=== PATIENT | male | born 1990 | race Caucasian/White ===

== ENCOUNTER → 2019-02-20 | Outpatient (CLI) | payer MEDICAID ==
[2019-02-20 15:01] LABS: HEMATOCRIT 45.5 % (42.0-52.0); HEMOGLOBIN 15.8 g/dl (13.5-17.5); MEAN CORPUSCULAR HGB CONC 34.7 g/dl (32.0-36.5); MEAN CORPUSCULAR VOLUME 83.5 fl (80.0-96.0); PLATELET COUNT, AUTOMATED 260 10^3/uL (150-450); RED BLOOD COUNT 5.45 10^6/uL (4.30-6.10); WHITE BLOOD COUNT 10.7 10^3/uL (4.0-10.0)
[2019-02-20 15:31] LABS: ALBUMIN 4.3 GM/DL (3.2-5.2); ALT/SGPT 78 U/L (12-78); BILIRUBIN,TOTAL 0.4 MG/DL (0.2-1.0); BLOOD UREA NITROGEN 20 MG/DL (7-18); CALCIUM LEVEL 9.5 MG/DL (8.5-10.1); CARBON DIOXIDE LEVEL 29 MEQ/L (21-32); CHLORIDE LEVEL 108 MEQ/L (98-107); GLOMERULAR FILTRATION RATE > 60.0 (>60); GLUCOSE, FASTING 102 MG/DL (70-100); POTASSIUM SERUM 4.4 MEQ/L (3.5-5.1); SODIUM LEVEL 141 MEQ/L (136-145); TOTAL PROTEIN 8.5 GM/DL (6.4-8.2)
--- NOTE | 2019-02-20 15:51 | ECGEPIP ---
[facility] Test Date: 2019-02-20 Pat Name: SHERRY BECK Department: Room: - Gender: Male [employer]: RF : 1990 Requested By: Mj Macias Order Number: [id number] Reading MD: Rhianna Zapien Measurements Intervals [place] Rate: 74 P: 59 [place]: 164 QRS: 64 QRSD: 102 T: 48 QT: 371 QTc: 413 Interpretive Statements SINUS RHYTHM NORMAL Electronically Signed on 02-20-2019 15:51:25 EDT by Rhianna Zapien
[2019-02-20 16:18] LABS: HIV 1&2 SCREEN CENTAUR NEGATIVE (NEGATIVE)
[2019-02-20 16:50] LABS: CHLAMYDIA DNA AMPLIFICATION NEGATIVE (NEGATIVE); GC DNA AMPLIFICATION NEGATIVE (NEGATIVE)
[2019-02-22 11:30] LABS: HEPATITIS B SURFACE ANTIGEN NEGATIVE (NEGATIVE)
[2019-02-22 12:27] LABS: HEPATITIS C VIRUS ABY INDEX > 11.0 INDEX (<0.8)
== END ==
LOC: M LAB 13:34
PROVIDERS: ATTEND Family Medicine
DX: F11.20 Opioid dependence, uncomplicated (principal)

== ENCOUNTER → 2019-03-04 | Outpatient (CLI) | payer MEDICAID ==
[2019-03-04 15:27] LABS: HEPATITIS B SURFACE ANTIBODY POSITIVE (POSITIVE); HEPATITIS B SURFACE ANTIGEN NEGATIVE (NEGATIVE)
[2019-03-10 00:06] LABS: HEPATITIS A IgG TOTAL Negative (Negative); HEPATITIS C QUANTITATION 25540 IU/mL (.); HEPATITIS C VIRUS GENOTYPE 3 (.)
== END ==
LOC: M LAB 13:41
PROVIDERS: ATTEND Physician Assistant Medical
DX: B18.2 Chronic viral hepatitis C (principal); B16.9 Acute hepatitis B without delta-agent and without hepatic coma; B15.9 Hepatitis A without hepatic coma

== ENCOUNTER 2019-07-03 12:12 | Emergency (ER) | payer MEDICAID, OTHER ==
[~2019-07-03] VITALS: Ht 182.9 cm; Wt 100.0 kg
[2019-07-03] MEDS ORDERED: METH10CO PO (12:16)
[2019-07-03] MEDS ORDERED: OMEP-218 (12:21)
[2019-07-03] MEDS ORDERED: AUGMENTIN 875 MG TAB PO ONE (12:45)
[2019-07-03] MEDS ORDERED: IBUPROFEN 800 MG TAB PO ONE (12:45)
[2019-07-03] MEDS ORDERED: AMPICILLIN SOD/SULBACTAM SOD 3 GM in D5W MINI-BAG PLUS 100 ML IV ONE ×2 (12:45→19:30)
[2019-07-03] MEDS ORDERED: dexameTHASONE 20 MG/5 ML VIAL (J1100) IV ONE (12:45)
[2019-07-03 13:48] LABS: BASO % 0.5 % (0.0-1.0); EOS # 0.5 10^3/uL (0.0-0.5); EOS % 6.5 % (0.0-3.0); HEMATOCRIT 42.1 % (42.0-52.0); HEMOGLOBIN 14.8 g/dl (13.5-17.5); LYMPH % 24.9 % (24.0-44.0); MEAN CORPUSCULAR HEMOGLOBIN 29.8 pg (27.0-33.0); MEAN CORPUSCULAR HGB CONC 35.2 g/dl (32.0-36.5); MEAN CORPUSCULAR VOLUME 84.9 fl (80.0-96.0); MONO % 12.7 % (0.0-5.0); NEUTROPHILS # 4.4 10^3/uL (1.5-8.5); NEUTROPHILS % 54.9 % (36.0-66.0); PLATELET COUNT, AUTOMATED 170 10^3/uL (150-450); RED BLOOD COUNT 4.96 10^6/uL (4.30-6.10)
[2019-07-03 14:17] LABS: BLOOD UREA NITROGEN 18 MG/DL (7-18); CALCIUM LEVEL 8.7 MG/DL (8.5-10.1); CARBON DIOXIDE LEVEL 26 MEQ/L (21-32); CHLORIDE LEVEL 103 MEQ/L (98-107); CREATININE FOR GFR 0.79 MG/DL (0.70-1.30); GLOMERULAR FILTRATION RATE > 60.0 (>60); GLUCOSE, FASTING 91 MG/DL (70-100); SODIUM LEVEL 135 MEQ/L (136-145)
[2019-07-03 19:37] VITALS: BP 142/80
== END 2019-07-03 19:49 | disposition home or self-care (01) ==
LOC: M ED 12:12
DX: K04.7 Periapical abscess without sinus (principal); K02.9 Dental caries, unspecified; R68.84 Jaw pain; Z79.899 Other long term (current) drug therapy; Z79.891 Long term (current) use of opiate analgesic; F19.21 Other psychoactive substance dependence, in remission; F17.210 Nicotine dependence, cigarettes, uncomplicated
CPT/HCPCS: 80048; 85025; 99284; J1100

== ENCOUNTER 2020-11-08 21:28 | Inpatient (IN) | payer MEDICAID, OTHER ==
[~2020-11-08] VITALS: Ht 180.3 cm; Wt 91.6 kg
[~2020-11-08 21:28] MED LIST: METH10CO PO; OMEP-218
[2020-11-08] MEDS ORDERED: ONDANSETRON 4MG/2ML VIAL IV ONE (22:40)
[2020-11-08] MEDS ORDERED: MORPHINE 4 MG/ML 1ML VIAL/SYRINGE (J2270) IV ONE (22:40)
[2020-11-08] MEDS ORDERED: ACETAMINOPHEN *IV* 1,000 MG in IV 1 EA IV ONE (22:40)
[2020-11-08] MEDS ORDERED: AMPICILLIN SOD/SULBACTAM SOD 1.5 GM in D5W MINI-BAG PLUS 50 ML IV ONE (22:50)
[2020-11-08 23:57] LABS: ALBUMIN 3.9 GM/DL (3.2-5.2); ALT/SGPT 92 U/L (12-78); BILIRUBIN,TOTAL 1.3 MG/DL (0.2-1.0); BLOOD UREA NITROGEN 18 MG/DL (7-18); CALCIUM LEVEL 8.6 MG/DL (8.5-10.1); CARBON DIOXIDE LEVEL 31 MEQ/L (21-32); CHLORIDE LEVEL 102 MEQ/L (98-107); GLOMERULAR FILTRATION RATE > 60.0 (>60); GLUCOSE, FASTING 114 MG/DL (70-100); POTASSIUM SERUM 3.7 MEQ/L (3.5-5.1); SODIUM LEVEL 136 MEQ/L (136-145); TOTAL PROTEIN 7.9 GM/DL (6.4-8.2)
[2020-11-09 00:10] LABS: HEMOGLOBIN 13.8 g/dl (13.5-17.5); MEAN CORPUSCULAR HEMOGLOBIN 28.6 pg (27.0-33.0); MEAN CORPUSCULAR HGB CONC 34.5 g/dl (32.0-36.5); MEAN CORPUSCULAR VOLUME 82.8 fl (80.0-96.0); PLATELET COUNT, AUTOMATED 210 10^3/uL (150-450); RED BLOOD COUNT 4.83 10^6/uL (4.30-6.10); WHITE BLOOD COUNT 10.8 10^3/uL (4.0-10.0)
[2020-11-09] MEDS ORDERED: ISOVUE-370 76% 100ML VIAL As Ordered ONE (00:14)
[2020-11-09 01:14] LABS: ERYTHROCYTE SEDIMENTATION RATE 22 mm/hr (0-15)
[2020-11-09] MEDS ORDERED: ACETAMINOPHEN TAB 650MG DOSE (2X325MG) PO PRN (04:40)
[2020-11-09] MEDS ORDERED: MORPHINE 4 MG/ML 1ML VIAL/SYRINGE (J2270) IV PRN (04:40)
[2020-11-09 04:48] LABS: RSV AMPLIFICATION NEGATIVE (NEGATIVE)
[2020-11-09] MEDS ORDERED: AMPICILLIN SOD/SULBACTAM SOD 3 GM in D5W MINI-BAG PLUS 100 ML IV SCH (06:00)
--- NOTE | 2020-11-09 07:06 | HPE ---
HISTORY AND PHYSICAL DATE OF ADMISSION: 11/09/2020 CHIEF COMPLAINT: Lower left arm. HISTORY OF PRESENT ILLNESS: This is a 30-year-old male who states he was cutting drywall with a utility knife approximately four days ago. Last night, he noticed swelling and some purulent drainage from the wound to the top of his left wrist last evening. It got even worse this morning. It became more painful. He came to the emergency room. Upon arrival, temperature was 97.8, pulse was 110, respiratory rate was 22, blood pressure was 160/86. O2 saturation was 96% on room air. Laboratory studies were drawn, white count was 10.8, hemoglobin 13.8, hematocrit 40, platelets were 210,000. Sed rate was 22. Electrolytes were normal. BUN was 18, creatinine was 0.80, nonfasting glucose was 114, calcium 8.6, total bilirubin 1.3, AST 51, ALT 92. CRP 4.70. Serology was negative for COVID. Negative for influenza A, influenza B, and RSV. CT of the left upper extremity with contrast was done that showed a 15 mm x 7 mm x 13 mm fluid collection in the subcutaneous tissues along the dorsal ulnar aspect of the left wrist, which likely represents an abscess. Cellulitis on the dorsal aspect of the left forearm, left wrist, and left hand. No CT findings to suggest necrotizing fasciitis or osteomyelitis in the left forearm, left wrist, or left hand. In the emergency room, the patient was given Tylenol and morphine for pain. He was given 1.[address] Fraga the ER physician states he spoke to the orthopod, who suggested inpatient admission for further care and IV antibiotics. The patient will be admitted to the hospitalist program for cellulitis left forearm, left wrist, and left hand. PRIMARY CARE PROVIDER: The patient currently has none. ALLERGIES: No known allergies. SOCIAL HISTORY: He is single. He occasionally drinks alcohol on the weekends. He smokes up to one pack of cigarettes per day. Recreational drug use: He has used heroin in the past. He states he has a bag now and then. He state he sees Dr. Macias at [facility] and takes methadone. He states that he takes 55 mg p.o. daily. Will need to follow-up with [facility] on that. PAST MEDICAL HISTORY: Hepatitis C. He had seen Dr. Kika at one time. PAST SURGICAL HISTORY: Oral dental surgery. REVIEW OF SYSTEMS: No complaint of headache. No blurred or double vision. He has had chills. No fever that he is aware of. No tinnitus, no hoarseness, no difficulty swallowing. No lightheadedness and no vertigo. Cardiovascular: No complaints of chest pain, shortness of breath, palpitations, or edema. Respiratory: No chronic cough. No sputum production. No hemoptysis. No orthopnea. No wheeze. GI: No nausea, vomiting, or diarrhea. No hematochezia. No melena. No complaints of abdominal pain. History of hep C. : No hematuria, dysuria, or frequency. Musculoskeletal: Left wrist is red and swollen. Endocrine: No polyuria, polydipsia, or polyphagia. Hematological: No history of anemia. Neurological: No history of seizures. Psychological: No suicidal ideations, anxiety, or depression. PHYSICAL EXAMINATION: GENERAL: 30-year-old cooperative male. Weight 91.5 kg, height 71 inches, BMI 28.1. Patient is alert and oriented x3. HEENT: Pupils equal, round, reactive to light. EOMs intact. Sclerae clear. Conjunctivae normal. No facial asymmetry. Tongue is midline. Broken teeth and dental caries. NECK: Supple without lymphadenopathy. No thyromegaly and no goiter. CHEST: Clear to auscultation without wheeze or retraction. HEART: Regular. ABDOMEN: Benign. Bowel sounds positive. : Exam not done. RECTAL: Exam not done. EXTREMITIES: No cyanosis, clubbing, or edema except for left forearm wrist and hand red and swollen with open areas dorsal aspect just above the wrist pustule draining. Peripheral pulses equal and palpable bilaterally. IMPRESSION AND PLAN: 1. Cellulitis of the left wrist and forearm. Admit inpatient status. The patient will need at least two midnights for intravenous (IV) antibiotics. Obtain orthopedic consultation. Monitor the abscess. Continue Unasyn. 2. History of hepatitis C. The patient may want outpatient follow-up with Dr. Anand. He has seen her in the past. Will give ibuprofen for pain and morphine for severe pain. Monitor liver functions. 3. History of heroin addiction. The patient states he takes methadone from Dr. Macias at [facility]. 4. Deep vein thrombosis (DVT) prophylaxis. Early ambulation. The patient will be up ambulating frequently. 5. Smoking cessation. Nicotine patch offered and patient declined at this time.
--- NOTE | 2020-11-09 08:19 | REP ---
INDICATION: forearm abscess, eval for extent WITH CONTRAST. Repeat dictation. Preliminary report is provided at the time of the exam by deng MCDOWELL. COMPARISON: None. TECHNIQUE: Helical scanning is acquired following the intravenous injection of 100 mL of Isovue 370. The patient had difficulty rib being motionless and was unable to raise his arm over his head. The left forearm is scanned with the forearm and wrist positioned across the abdomen. 3 mm images are re-formatted in all 3 planes. FINDINGS: There is dorsal soft tissue swelling centered at the wrist and extending proximally into the distal forearm and distally over the hand dorsally. At the level of the carpus there is superficial low-density area with surrounding slight contrast enhancement. This may be a developing abscess. It measures 1.5 x 0.7 x 1.3 cm. The adjacent edema is consistent with cellulitis. No bony erosive or destructive lesion is seen. No soft tissue gas is observed. There is slight motion artifact. IMPRESSION: Dorsal soft tissue swelling centered about the carpus on in the left upper extremity. 1.5 cm low-density area may be developing abscess as above. Adjacent cellulitis. No soft tissue gas or bony erosive change seen <Electronically signed by Norman Morelos > 11/09/20 0843
[2020-11-09 08:36] LABS: BASO % 0.3 % (0.0-1.0); EOS # 0.4 10^3/uL (0.0-0.5); EOS % 3.9 % (0.0-3.0); HEMATOCRIT 40.6 % (42.0-52.0); HEMOGLOBIN 14.2 g/dl (13.5-17.5); LYMPH # 1.7 10^3/uL (1.5-5.0); LYMPH % 17.2 % (24.0-44.0); MEAN CORPUSCULAR HEMOGLOBIN 29.3 pg (27.0-33.0); MEAN CORPUSCULAR VOLUME 83.9 fl (80.0-96.0); MONO # 1.1 10^3/uL (0.0-0.8); MONO % 11.4 % (2.0-8.0); NEUTROPHILS # 6.4 10^3/uL (1.5-8.5); NEUTROPHILS % 66.8 % (36.0-66.0); PLATELET COUNT, AUTOMATED 188 10^3/uL (150-450); RED BLOOD COUNT 4.84 10^6/uL (4.30-6.10); WHITE BLOOD COUNT 9.6 10^3/uL (4.0-10.0)
[2020-11-09] MEDS: ENOXAPARIN 40MG/0.4ML SYRINGE (J1650 PER 10MG) SC SCH (09:00)
[2020-11-09 09:01] LABS: ALBUMIN 3.7 GM/DL (3.2-5.2); ALT/SGPT 89 U/L (12-78); BILIRUBIN,TOTAL 1.4 MG/DL (0.2-1.0); BLOOD UREA NITROGEN 15 MG/DL (7-18); CALCIUM LEVEL 8.6 MG/DL (8.5-10.1); CARBON DIOXIDE LEVEL 31 MEQ/L (21-32); CHLORIDE LEVEL 101 MEQ/L (98-107); CREATININE FOR GFR 0.73 MG/DL (0.70-1.30); GLOMERULAR FILTRATION RATE > 60.0 (>60); GLUCOSE, FASTING 126 MG/DL (70-100); POTASSIUM SERUM 3.9 MEQ/L (3.5-5.1); SODIUM LEVEL 135 MEQ/L (136-145); TOTAL PROTEIN 8.1 GM/DL (6.4-8.2)
[2020-11-09 10:00] VITALS: BP 124/66
--- NOTE | 2020-11-09 10:19 | ER ---
ER CONSULTATION DATE: 11/09/2020 CONSULTING SERVICE: Orthopedic surgery. CONSULTING PHYSICIAN: Asaf Alfaro MD HISTORY OF PRESENT ILLNESS: This is a 30-year-old male who presents five days after a left knife injury to the dorsal aspect of his left forearm. This is the patient's first visit to the emergency department since sustaining the injury. The patient presents with very mild 1 x 1 cm superficial abscess of his forearm and surrounding cellulitis. The patient was given empirical antibiotics by the [facility] Emergency Department this morning, 11/09/2020 and he was admitted by internal medicine for continued IV antibiotics. Orthopedic surgery was consulted for evaluation of the superficial abscess with recommendations as provided below. MEDICAL HISTORY: The patient is an IV drug user. SURGICAL HISTORY: Unknown. ALLERGIES: UNKNOWN. PHYSICAL EXAMINATION: GENERAL: Alert and oriented to person, time and place. LEFT UPPER EXTREMITY: The patient had 1 x 1 cm superficial abscess of the dorsal aspect of the left forearm. The patient had surrounding cellulitis approximately 5 cm surrounding superficial abscess which was marked with surgical pen. The left upper extremity was otherwise neurovascularly intact. He had 5/5 motor strength to the distribution of the musculocutaneous axillary, radial, median and ulnar nerve distributions. He had sensation intact to light touch in musculocutaneous axillary, radial medial and ulnar nerve distributions. 2+ radioulnar pulse. Brisk capillary refill to the digits. RADIOGRAPHS: Pending left forearm x-ray. CT scan of the left forearm demonstrated no appreciable gas; superficial abscess is very difficult to see on CT scan confirming that it is very small. No other osseous abnormalities appreciated on CT scan. IMPRESSION: 30-year-old male with superficial abscess of the left forearm, dorsal aspect. PLAN: At this point in time we will attempt IV antibiotics per internal medicine team to see if this can resolve the cellulitis in the left dorsal forearm. If this does not provided any significant relief in 24 hours the patient will likely undergo irrigation and debridement of the dorsal superficial abscess of the left forearm by orthopedics. I will continue to observe the patient within the next 24 hours, likely requiring irrigation and debridement when time and space available.
[2020-11-09] MEDS ORDERED: METH5TA PO (11:46)
[2020-11-09] MEDS: METHADONE 10 MG TAB (S0109) PO SCH (12:09)
[2020-11-09] MEDS: METHADONE 5 MG TAB (S0109) PO SCH (12:09)
[2020-11-09] MEDS: AMPICILLIN SOD/SULBACTAM SOD 3 GM in D5W MINI-BAG PLUS 100 ML IV SCH ×2 (12:10→18:54)
[2020-11-09 12:55] LABS: HIV 1&2 SCREEN CENTAUR NEGATIVE (NEGATIVE)
[2020-11-09 14:00] VITALS: BP 115/65
[2020-11-09] MEDS: KETOROLAC 30 MG/ML 1ML VIAL IV PRN (16:17)
[2020-11-09 18:00] VITALS: BP 114/64
[2020-11-09] MEDS: IBUPROFEN 800 MG TAB PO PRN (20:55)
[2020-11-09 22:00] VITALS: BP 128/68
[2020-11-10] VITALS (7 sets, daily range): BP systolic 100–147; BP diastolic 54–92
[2020-11-10] MEDS: AMPICILLIN SOD/SULBACTAM SOD 3 GM in D5W MINI-BAG PLUS 100 ML IV SCH ×5 (00:28→23:33)
[2020-11-10 08:48] LABS: BASO % 0.2 % (0.0-1.0); EOS # 0.5 10^3/uL (0.0-0.5); EOS % 5.3 % (0.0-3.0); HEMATOCRIT 40.1 % (42.0-52.0); HEMOGLOBIN 13.9 g/dl (13.5-17.5); LYMPH # 1.8 10^3/uL (1.5-5.0); LYMPH % 20.3 % (24.0-44.0); MEAN CORPUSCULAR HEMOGLOBIN 29.1 pg (27.0-33.0); MEAN CORPUSCULAR HGB CONC 34.7 g/dl (32.0-36.5); MEAN CORPUSCULAR VOLUME 83.9 fl (80.0-96.0); MONO # 1.2 10^3/uL (0.0-0.8); NEUTROPHILS # 5.2 10^3/uL (1.5-8.5); NEUTROPHILS % 59.7 % (36.0-66.0); PLATELET COUNT, AUTOMATED 191 10^3/uL (150-450); RED BLOOD COUNT 4.78 10^6/uL (4.30-6.10); WHITE BLOOD COUNT 8.8 10^3/uL (4.0-10.0)
[2020-11-10] MEDS: ENOXAPARIN 40MG/0.4ML SYRINGE (J1650 PER 10MG) SC SCH (09:00)
[2020-11-10] MEDS: METHADONE 5 MG TAB (S0109) PO SCH (09:01)
[2020-11-10] MEDS: METHADONE 10 MG TAB (S0109) PO SCH (09:01)
[2020-11-10 09:08] LABS: ALBUMIN 3.4 GM/DL (3.2-5.2); ALT/SGPT 73 U/L (12-78); BILIRUBIN,TOTAL 0.4 MG/DL (0.2-1.0); BLOOD UREA NITROGEN 15 MG/DL (7-18); CALCIUM LEVEL 8.7 MG/DL (8.5-10.1); CARBON DIOXIDE LEVEL 30 MEQ/L (21-32); CHLORIDE LEVEL 104 MEQ/L (98-107); CREATININE FOR GFR 0.58 MG/DL (0.70-1.30); GLOMERULAR FILTRATION RATE > 60.0 (>60); GLUCOSE, FASTING 97 MG/DL (70-100); POTASSIUM SERUM 4.4 MEQ/L (3.5-5.1); SODIUM LEVEL 138 MEQ/L (136-145); TOTAL PROTEIN 7.3 GM/DL (6.4-8.2)
--- NOTE | 2020-11-10 10:59 | IPN ---
PROGRESS NOTE DATE: 11/10/2020 SUBJECTIVE: Patient is seen and examined at the bedside. Chart has been reviewed. He complains of 7/10 pain of the hand. Has an abscess, waiting for incision and drainage (I and D) by orthopaedic surgery. No complaints of chills. No other issues per nursing. OBJECTIVE: PHYSICAL EXAMINATION: Vital signs: Temperature 98.7, pulse 70, respiratory rate 18, blood pressure 125/70, 96% on room air. Generally: Awake, alert, oriented to person, place, and time, answering questions appropriately. Anicteric, no jaundice. Lungs: Clear to auscultation. No wheezing, rales, or rhonchi. Heart: S1, S2, sinus rhythm. Abdomen: Soft, nontender, nondistended, positive bowel sounds times four quadrants. Extremities: Patient has a swollen right hand, has a 1 cm fluctuant mass with purulent drainage and erythema measuring about 4 cm around. LABORATORY DATA: White count 8.8, hemoglobin 13, hematocrit 40, platelet count 191, sodium 138, potassium 4.4, chloride 104, bicarbonate 30, BUN 15, creatinine 0.58, glucose of 97. IMAGING STUDIES: CT: Dorsal soft tissue swelling centered around the left upper extremity, 1.5 x 0.7 x 1.3 cm developing abscess with adjacent edema. ASSESSMENT AND PLAN: 30-year-old male with history of recreational drug use on chronic methadone admitted on 11/09/2020 due to left wrist abscess, 15 mm x 7 mm x 13 mm fluid collection. IMPRESSION: 1. Left wrist and forearm abscess with underlying cellulitis. on intravenous Unasyn, IV Toradol for pain, ibuprofen incision and drainage for 4pm 11/11/20 by ortho . 2. History of hepatitis C. Outpatient followup. 3. History of substance abuse, on chronic methadone. DISPOSITION: 2 days depending on clinical improvement and incision and drainage MTDD
[2020-11-10] MEDS: IBUPROFEN 800 MG TAB PO PRN (19:14)
[2020-11-10] MEDS: KETOROLAC 30 MG/ML 1ML VIAL IV PRN (19:55)
[2020-11-10] MEDS ORDERED: ACETAMINOPHEN TAB 650MG DOSE (2X325MG) PO PRN (20:35)
[2020-11-11] VITALS (7 sets, daily range): BP systolic 124–140; BP diastolic 62–88
[2020-11-11] MEDS: AMPICILLIN SOD/SULBACTAM SOD 3 GM in D5W MINI-BAG PLUS 100 ML IV SCH ×3 (05:02→18:48)
[2020-11-11 07:04] LABS: BASO % 0.5 % (0.0-1.0); EOS # 0.5 10^3/uL (0.0-0.5); EOS % 7.2 % (0.0-3.0); HEMOGLOBIN 14.5 g/dl (13.5-17.5); LYMPH # 2.1 10^3/uL (1.5-5.0); LYMPH % 33.6 % (24.0-44.0); MEAN CORPUSCULAR HEMOGLOBIN 28.5 pg (27.0-33.0); MEAN CORPUSCULAR HGB CONC 33.7 g/dl (32.0-36.5); MEAN CORPUSCULAR VOLUME 84.6 fl (80.0-96.0); MONO # 0.8 10^3/uL (0.0-0.8); NEUTROPHILS # 2.8 10^3/uL (1.5-8.5); NEUTROPHILS % 45.2 % (36.0-66.0); PLATELET COUNT, AUTOMATED 203 10^3/uL (150-450); RED BLOOD COUNT 5.08 10^6/uL (4.30-6.10); WHITE BLOOD COUNT 6.2 10^3/uL (4.0-10.0)
[2020-11-11 07:35] LABS: ALBUMIN 3.3 GM/DL (3.2-5.2); ALT/SGPT 65 U/L (12-78); BILIRUBIN,TOTAL 0.4 MG/DL (0.2-1.0); BLOOD UREA NITROGEN 16 MG/DL (7-18); CALCIUM LEVEL 9.2 MG/DL (8.5-10.1); CARBON DIOXIDE LEVEL 31 MEQ/L (21-32); CHLORIDE LEVEL 102 MEQ/L (98-107); CREATININE FOR GFR 0.62 MG/DL (0.70-1.30); GLOMERULAR FILTRATION RATE > 60.0 (>60); GLUCOSE, FASTING 89 MG/DL (70-100); POTASSIUM SERUM 4.3 MEQ/L (3.5-5.1); SODIUM LEVEL 136 MEQ/L (136-145); TOTAL PROTEIN 7.2 GM/DL (6.4-8.2)
[2020-11-11] MEDS: METHADONE 10 MG TAB (S0109) PO SCH (08:22)
[2020-11-11] MEDS: METHADONE 5 MG TAB (S0109) PO SCH (08:22)
[2020-11-11] MEDS: ENOXAPARIN 40MG/0.4ML SYRINGE (J1650 PER 10MG) SC SCH (08:22)
[2020-11-11] MEDS: D5W/0.45% SODIUM CHLORIDE 1,000 ML IV SCH ×2 (08:28→18:49)
--- NOTE | 2020-11-11 13:01 | IPN ---
PROGRESS NOTE DATE: 11/11/2020 SUBJECTIVE: The patient remains afebrile with no complaints of chills. He was asking for his methadone this morning. He has been kept n.p.o. for incision and drainage by orthopedic surgeon, Dr. Alfaro. The patient has had no other acute issues overnight. Pain is rated at 7/10 on a pain scale. Currently on as needed ibuprofen, Toradol, and IV fluids with normal creatinine. OBJECTIVE: VITAL SIGNS: Temperature 97.9, pulse 62, respiratory rate 16, blood pressure 127/63, 98% on room air. GENERAL: Awake, alert, and oriented. In no distress. Speaking in full sentences. HEENT: No pallor or icterus. NECK: Supple with full range of motion. LUNGS: Clear to auscultation. No wheezing or rales. HEART: S1, S2. Sinus rhythm. ABDOMEN: Soft, nontender, and nondistended with positive bowel sounds. EXTREMITIES: The patient continues to have a purulent openly draining abscess in the left upper extremity measuring 1 cm with improving erythema of about 2.5 cm. Dorsum of the hand is still edematous. LABORATORY DATA: CBC and metabolic panel have been reviewed. MICROBIOLOGY: None. IMAGING STUDIES: CT upper extremity reviewed. ASSESSMENT AND PLAN: This is a 30-year-old male with history of recreational drug use on chronic methadone admitted on 11/09, due to a left upper extremity abscess and cellulitis. IMPRESSION: 1. Left wrist and forearm abscess with underlying cellulitis currently on IV Unasyn. He has remained afebrile with improvement, but with persistent fluctuant mass now openly draining. The patient has been kept n.p.o. for incision and drainage in the OR later today by orthopedic surgery. Wound cultures will be obtained. Depending on wound cultures, the patient may be discharged home soon. 2. History of hepatitis C. Outpatient follow-up with infectious disease (ID) or gastroenterology. 3. History of substance abuse on chronic methadone. DISPOSITION: Await Incision and drainage (I&D). Discharge if medically stable on oral antibiotics as outpatient. [facility]
[2020-11-11] MEDS ORDERED: dexameTHASONE 4 MG/ML 1ML VIAL (J1100 PER 1MG) As Ordered ONE (20:12)
[2020-11-11] MEDS ORDERED: ACETAMINOPHEN 1000MG 100ML IV BTL (OFIRMEV) (J0131 PER 10MG) As Ordered ONE (20:12)
[2020-11-11] MEDS ORDERED: KETOROLAC 60MG 2ML VIAL As Ordered ONE (20:12)
[2020-11-11] MEDS ORDERED: fentaNYL 100 MCG/2 ML INJECTION (J3010) As Ordered ONE ×2 (20:12→22:02)
[2020-11-11] MEDS ORDERED: ONDANSETRON 4MG/2ML VIAL As Ordered ONE (20:12)
[2020-11-11] MEDS ORDERED: propofoL 200 MG/20 ML VIAL As Ordered ONE (20:12)
[2020-11-11] MEDS ORDERED: MIDAZOLAM INJ 2MG/2ML VIAL (J2250 PER 1MG) As Ordered ONE (20:12)
[2020-11-11] MEDS ORDERED: LIDOCAINE 2% 100MG/5ML SDV (FOR ANES.) As Ordered ONE (20:12)
[2020-11-11] MEDS ORDERED: BUPIVACAINE/EPIN 0.5% 30 ML VIAL As Ordered ONE (20:36)
[2020-11-11] MEDS: fentaNYL 100 MCG/2 ML INJECTION (J3010) IV PRN ×4 (22:03→22:25)
[2020-11-11] MEDS ORDERED: oxyCODONE 5MG TAB PO PRN (22:30)
[2020-11-11] MEDS ORDERED: ONDANSETRON 4MG/2ML VIAL IV PRN (22:30)
[2020-11-11] MEDS ORDERED: LR 1,000 ML IV SCH (22:30)
[2020-11-12] VITALS (9 sets, daily range): BP systolic 102–130; BP diastolic 59–74
[2020-11-12] MEDS: AMPICILLIN SOD/SULBACTAM SOD 3 GM in D5W MINI-BAG PLUS 100 ML IV SCH ×4 (00:22→18:22)
[2020-11-12] MEDS: D5W/0.45% SODIUM CHLORIDE 1,000 ML IV SCH (00:22)
--- NOTE | 2020-11-12 06:35 | REP ---
INDICATION: POST OR COMPARISON: None. TECHNIQUE: AP and lateral views of the left forearm. FINDINGS: Osseous structures appear intact. No acute fracture or dislocation. Dressing material overlies the distal 3rd of the forearm and wrist with underlying possible subcutaneous and skin abrasions/lacerations. IMPRESSION: No acute fracture or dislocation. No foreign body identified. <Electronically signed by Leo Yang > 11/12/20 0632
[2020-11-12 06:36] LABS: BASO % 0.2 % (0.0-1.0); EOS % 0.4 % (0.0-3.0); HEMATOCRIT 41.7 % (42.0-52.0); HEMOGLOBIN 14.4 g/dl (13.5-17.5); LYMPH # 1.2 10^3/uL (1.5-5.0); LYMPH % 13.4 % (24.0-44.0); MEAN CORPUSCULAR HEMOGLOBIN 28.8 pg (27.0-33.0); MEAN CORPUSCULAR HGB CONC 34.5 g/dl (32.0-36.5); MEAN CORPUSCULAR VOLUME 83.4 fl (80.0-96.0); MONO # 0.5 10^3/uL (0.0-0.8); MONO % 5.2 % (2.0-8.0); NEUTROPHILS # 7.3 10^3/uL (1.5-8.5); NEUTROPHILS % 80.5 % (36.0-66.0); PLATELET COUNT, AUTOMATED 218 10^3/uL (150-450); WHITE BLOOD COUNT 9.1 10^3/uL (4.0-10.0)
--- NOTE | 2020-11-12 06:37 | REP ---
INDICATION: POST OR COMPARISON: None. TECHNIQUE: AP and lateral left hand. FINDINGS: Soft tissue swelling is appreciated. Soft tissue injuries and lacerations overlying the dorsal aspect of the wrist are suspected. No acute fracture or dislocation identified. No foreign body appreciated. IMPRESSION: Soft tissue injuries. No acute fracture or dislocation. <Electronically signed by Leo Yang > 11/12/20 0622
--- NOTE | 2020-11-12 06:37 | REP ---
INDICATION: POST OR,IN PACU COMPARISON: None. TECHNIQUE: AP and lateral left wrist. FINDINGS: The osseous structures appear intact and without fracture or dislocation. Lateral view best demonstrates presumed skin lacerations and small amount of subcutaneous emphysema along the dorsal aspect of the distal forearm/wrist/hand. No obvious foreign body. IMPRESSION: Soft tissue injury suggested. No acute fracture or dislocation.. <Electronically signed by Leo Yang > 11/12/20 0640
[2020-11-12 07:04] LABS: ALBUMIN 3.2 GM/DL (3.2-5.2); ALT/SGPT 64 U/L (12-78); BILIRUBIN,TOTAL 0.3 MG/DL (0.2-1.0); BLOOD UREA NITROGEN 16 MG/DL (7-18); CALCIUM LEVEL 8.9 MG/DL (8.5-10.1); CARBON DIOXIDE LEVEL 27 MEQ/L (21-32); CHLORIDE LEVEL 102 MEQ/L (98-107); CREATININE FOR GFR 0.68 MG/DL (0.70-1.30); GLOMERULAR FILTRATION RATE > 60.0 (>60); GLUCOSE, FASTING 104 MG/DL (70-100); POTASSIUM SERUM 4.5 MEQ/L (3.5-5.1); SODIUM LEVEL 135 MEQ/L (136-145); TOTAL PROTEIN 7.8 GM/DL (6.4-8.2)
[2020-11-12] MEDS: METHADONE 10 MG TAB (S0109) PO SCH (08:22)
[2020-11-12] MEDS: METHADONE 5 MG TAB (S0109) PO SCH (08:26)
[2020-11-12] MEDS: ENOXAPARIN 40MG/0.4ML SYRINGE (J1650 PER 10MG) SC SCH (08:26)
[2020-11-12] MEDS ORDERED: GABAPENTIN 300 MG CAP PO ONE ×2 (09:45→16:00)
--- NOTE | 2020-11-12 09:54 | RO ---
OPERATIVE NOTE DATE OF OPERATION: 11/11/2020 PREOPERATIVE DIAGNOSIS: Left dorsal aspect of forearm 2 x 2 cm abscess. POSTOPERATIVE DIAGNOSIS: Left dorsal aspect of forearm 2 x 2 cm abscess. PROCEDURE: Left dorsal forearm irrigation and debridement. SUPERVISING ATTENDING SURGEON: Asaf Alfaro MD HEALTH PROGRAM MANAGER: Unknown. ANESTHESIA: GETA. FINDINGS: The patient had purulence about the dorsal aspect of the left forearm with abscess measuring 2 x 2 cm. INDICATIONS: This is a 30-year-old male who states he was cutting drywall with a utility knife approximately five days ago. Two days prior the patient noted swelling and some purulent drainage from the wound on the dorsal aspect of his forearm. It got worse and had surrounding erythema. The patient presented to [facility] for further evaluation and treatment. The patient was admitted to the Hospitalist, undergone 48 hours of Unasyn IV antibiotics and the patient's abscess has not had much improvement. He is indicated for formal irrigation and debridement of the abscess and wound packing with Iodine-soaked packing gauze. TOURNIQUET TIME: None used. ESTIMATED BLOOD LOSS: 50 mL. IV FLUIDS: Please see anesthesia report. IV ANTIBIOTICS: None, given Unasyn on the floor. CULTURES: Anaerobic, aerobic. SPECIMEN: None. IMPLANTS: None. DESCRIPTION OF PROCEDURE: The patient was met in the preoperative holding area where the patient's operative extremity was marked, patient's consent was noted to be correct, and the patient's identity was confirmed to be correct. The patient was then transported to the operating theater where he was placed supine on regular surgical flattop bed with his left upper extremity extended onto a hand board. Safety straps secured the patient to the bed. All bony prominences were well padded. Bilateral lower extremities had SCDs placed. Time out was called to confirm correct patient, correct operative extremity, and correct consent. All staff was in agreement. The patient was then draped in the usual sterile fashion. We extended the purulent abscess lesion with an excision that extended both distal and proximal approximately 1 cm. The incision was trans dermal to the layer of the fascia overlying the forearm extensor muscles. We then introduced hemostats in order to break up any loculations or purulence. He expressed approximately 10 mL of purulence. We then used a rongeur to debride any necrotic-appearing tissue surrounding the abscess. We then incised a thin rim surrounding the former abscess which appeared to be necrotic. We then copiously irrigated the surgical site with 6 liters normal saline. At the completion of the irrigation I reapproximated most distal and proximal aspect of the incision and packed the wound with Iodine-soaked packing gauze. The remainder of the wound was left open for drainage. We then placed gauze dressing around the patient's surgical incision followed by Leopoldo bandage. The patient was extubated without complication and transferred to the postanesthesia care unit. At this point in time the patient will be nonweightbearing to the left upper extremity. His care will be transferred to the Hospitalist Service. I recommend that the Hospitalist Service consult Dr. Allen, plastic surgeon for possible skin grafting options. I believe this may primarily be closed. However, this will require a repeat irrigation and debridement if condition is not improved. Wound Care may also be another option. However, given his skin loss I believe he would be a candidate split-thickness skin graft once his infection resolves. We will continue to trend his laboratory markers. EDGAR
[2020-11-12] MEDS: KETOROLAC 30 MG/ML 1ML VIAL IV SCH ×3 (10:00→21:13)
--- NOTE | 2020-11-12 10:46 | IPN ---
PROGRESS NOTE DATE: 11/12/2020 SUBJECTIVE: Patient is seen and examined at the bedside. Chart has been reviewed. He has been reviewed. He complains of 7/10 pain at the left arm, status post incision and drainage yesterday. No fever or chills. No other issues per nursing. OBJECTIVE: VITAL SIGNS: Temperature 97.8, pulse 60, respiratory rate 16, blood pressure 110/60, 96% on room air. GENERAL: Patient is awake, alert and oriented to person, place and time. HEENT: Anicteric. No jaundice. Moist mucous membranes. No JVD, thyromegaly, cervical lymphadenopathy. LUNGS: Clear to auscultation. No wheezes, rales or rhonchi. HEART: S1, S2, sinus rhythm. ABDOMEN: Soft, nontender, non-distended. Positive bowel sounds. EXTREMITIES: Patient has swollen left hand, bandaged forearm. No cyanosis or clubbing. SKIN: Warm, dry and well perfused. LABORATORY DATA: White count 9, hemoglobin 14, hematocrit 41, platelet count 218,000. Sodium 135, potassium 4.5, chloride 102, bicarb 27, BUN 16, creatinine 0.68, glucose 104. Left wrist and left forearm wound culture pending. ASSESSMENT/PLAN: This is a 30-year-old with history of recreational drug use, on chronic methadone, admitted on 11/09/2020 due to left upper extremity abscess and cellulitis. 1. Left wrist forearm abscess/cellulitis on I.V. Unasyn; status post incision and drainage by orthopedic surgery on 11/12/2020 with recommendations to have plastic surgery evaluate the patient for a skin flap. Patient continues on I.V. Unasyn until wound cultures are finalized. 2. Recreational drug abuse on chronic methadone. 3. Pain control; currently on Toradol 15 mg, will change to 30 mg I.V. every 6 hours. Discontinue Ibuprofen per pharmacy recommendations. May start on Gabapentin and titrate as needed. Patient is currently on I.V. fluids. Per nursing, patient has been increasingly edematous, therefore I.V. fluids have been discontinued, but will need to monitor patient for worsening azotemia. Would repeat metabolic panel daily. 4. History of Hepatitis C: Have patient follow-up with GI or ID. [facility]
[2020-11-12] MEDS ORDERED: ACETAMINOPHEN 500 MG TAB PO ONE (15:00)
[2020-11-12] MEDS ORDERED: PROMETHAZINE INJ 25 MG/ML VIAL (J2550) IV ONE (15:00)
[2020-11-12] MEDS ORDERED: traMADol 50 MG TAB PO ONE (15:00)
[2020-11-12] MEDS ORDERED: PROMETHAZINE 25 MG TAB PO ONE ×2 (16:00→20:40)
--- NOTE | 2020-11-12 17:17 | CR.PDOC ---
Plastic Surgery Consultation Date of Consultation 11/12/20 History and Physical CONSULT REPORT FOR: Medical service REASON FOR CONSULTATION: Left dorsal forearm open wound HISTORY OF PRESENT ILLNESS: 30 y/o RHD male s/p abscess drainage and debridement of devitalized tissue last night on the dorsal side proximal wrist. Patient states he injured himself with a knife 4 days ago. He developed swelling, skin necrosis and pain and went to ER. Today, he is feeling well. Pain controlled. Left hand with moderate swelling. Mother present at the bedside for the visit. Patient admits to smoking daily. Denies drinking. He works construction. PAST MEDICAL HISTORY: 1. Hep C. PAST SURGICAL HISTORY: INCLUDES: 1. dental work. PREVIOUS ANESTHESIA REACTIONS: denies ALLERGIES: Please see below. FAMILY HISTORY: none contributory. HOME MEDICATIONS: Please see below. REVIEW OF SYSTEMS: GENERAL: Denies chills, reports weight gain,. HEENT: Denies blurred vision and double vision. Denies ear symptoms. Denies hoarseness. NECK: Denies any neck pain]. CARDIOVASCULAR: Denies chest pain and palpitations. MUSCULOSKELETAL: Denies arthralgias, back pain and thrombophlebitis. SKIN: Denies rash. Open wound NEUROLOGIC: Denies headache, stroke and transient ischemic attack. PSYCHIATRIC: Denies anxiety and depression. ENDOCRINE: Denies thyroid disease. HEMATOLOGY/ONCOLOGY: Denies bleeding or clotting disorder. HEART: Denies any chest pains, palpitations, paroxysmal dyspnea, orthopnea. PULMONARY: Denies chronic cough, dyspnea and wheezing. GASTROINTESTINAL: Denies rectal bleeding, family history of colon cancer, constipation, diarrhea, dysphagia, heartburn and jaundice. GENITOURINARY: Denies dysuria, frequency, hematuria and nocturia. ENDOCRINE: Denies polydipsia, polyphagia, polyuria, heat or cold intolerance. INFECTIOUS: Denies any recent upper respiratory tract infection, UTI, need for use of antibiotics. NUTRITION: Reports good appetite. PHYSICAL EXAMINATION: VITALS SIGNS: Please see below. GENERAL APPEARANCE:Patient seen, laying in bed, awake, alert, and oriented. Comfortable, in no acute distress. SKIN: Warm and moist. Dressing removed. Left hand with moderate swelling. No neurological deficit. Proximal dorsal wrist with open wound 2x2 cm with nylon sutures proximally and distally. Packing in place. No active bleeding. Redness minimal around incision. No drainage. LUNGS: Clear to auscultation bilaterally. No wheezing appreciated. HEART: No chest wall abnormalities. Regular rate and rhythm with no murmurs appreciated. EXTREMITIES: Extremities have no deformities. No edema identified. No calf tenderness. LABORATORY DATA: Please see below. IMPRESSION: Left dorsal proximal wrist open wound s/p abscess drainage. PLANS: Remove packing tomorrow. Start with soaks and packing changes. Continue with antibiotics. This size wound expected to granulate in. Due to acute infection, immediate closure is not indicated. If residual deficit remains after infection cleared, will discuss secondary closure. Findings discussed with patient and mother. Medical service notified. Vital Signs Vital Signs Date Time Temp Pulse Resp B/P (MAP) Pulse Ox O2 Delivery O2 Flow Rate FiO2 11/12/20 15:46 18 11/12/20 14:00 98.4 60 130/72 (91) 100 Room Air 11/11/20 21:45 10 I&Os I&O- Last 24 Hours up to 6 AM 11/12/20 06:00 Intake Total 4455 ml Output Total 2800 ml Balance 1655 ml Laboratory Data Labs 24H Laboratory Tests 2 11/12/20 06:09: Immature Granulocyte % (Auto) 0.3, Neutrophils (%) (Auto) 80.5H, Lymphocytes (%) (Auto) 13.4L, Monocytes (%) (Auto) 5.2, Eosinophils (%) (Auto) 0.4, Basophils (%) (Auto) 0.2, Neutrophils # (Auto) 7.3, Lymphocytes # (Auto) 1.2L, Monocytes # (Auto) 0.5, Eosinophils # (Auto) 0.0, Basophils # (Auto) 0.0, Nucleated Red Blood Cells % (auto) 0.0, Anion Gap 6L, Glomerular Filtration Rate > 60.0, Calcium Level 8.9, Total Bilirubin 0.3, Aspartate Amino Transf (AST/SGOT) 34, Alanine Aminotransferase (ALT/SGPT) 64, Alkaline Phosphatase 76, Total Protein 7.8, Albumin 3.2, Albumin/Globulin Ratio 0.7 CBC/BMP Laboratory Tests 11/12/20 06:09 Microbiology Microbiology 11/11/20 Gram Stain - Final, Resulted 11/11/20 Wound Culture, Resulted Pending 11/11/20 Anaerobic Culture, Resulted Pending 11/11/20 Gram Stain - Final, Resulted 11/11/20 Wound Culture, Resulted Pending 11/11/20 Anaerobic Culture, Resulted Pending Home Medications Scheduled Methadone HCl (Methadone HCl) 5 Mg Tablet, 55 MG PO DAILY, (Reported) Allergies Coded Allergies: No Known Allergies (Unverified , 07/03/19) RAGHAVENDRA LU DO Nov 12, 2020 17:17
[2020-11-12] MEDS: GABAPENTIN 300 MG CAP PO SCH (21:13)
[2020-11-13] MEDS: AMPICILLIN SOD/SULBACTAM SOD 3 GM in D5W MINI-BAG PLUS 100 ML IV SCH ×2 (00:20→06:34)
[2020-11-13 02:00] VITALS: BP 112/64
[2020-11-13] MEDS: KETOROLAC 30 MG/ML 1ML VIAL IV SCH ×2 (04:00→10:00)
[2020-11-13 06:00] VITALS: BP 132/66
[2020-11-13 06:19] LABS: BASO % 0.5 % (0.0-1.0); EOS # 0.3 10^3/uL (0.0-0.5); EOS % 3.9 % (0.0-3.0); HEMATOCRIT 42.3 % (42.0-52.0); HEMOGLOBIN 14.4 g/dl (13.5-17.5); LYMPH # 2.3 10^3/uL (1.5-5.0); LYMPH % 27.6 % (24.0-44.0); MEAN CORPUSCULAR HEMOGLOBIN 28.9 pg (27.0-33.0); MEAN CORPUSCULAR VOLUME 84.8 fl (80.0-96.0); MONO # 0.8 10^3/uL (0.0-0.8); MONO % 9.9 % (2.0-8.0); NEUTROPHILS # 4.8 10^3/uL (1.5-8.5); NEUTROPHILS % 57.3 % (36.0-66.0); PLATELET COUNT, AUTOMATED 203 10^3/uL (150-450); RED BLOOD COUNT 4.99 10^6/uL (4.30-6.10); WHITE BLOOD COUNT 8.4 10^3/uL (4.0-10.0)
[2020-11-13] MEDS: GABAPENTIN 300 MG CAP PO SCH (06:34)
[2020-11-13 06:51] LABS: ALBUMIN 3.3 GM/DL (3.2-5.2); ALT/SGPT 55 U/L (12-78); BILIRUBIN,TOTAL 0.2 MG/DL (0.2-1.0); BLOOD UREA NITROGEN 17 MG/DL (7-18); CALCIUM LEVEL 8.5 MG/DL (8.5-10.1); CARBON DIOXIDE LEVEL 31 MEQ/L (21-32); CHLORIDE LEVEL 105 MEQ/L (98-107); CREATININE FOR GFR 0.73 MG/DL (0.70-1.30); GLOMERULAR FILTRATION RATE > 60.0 (>60); GLUCOSE, FASTING 104 MG/DL (70-100); POTASSIUM SERUM 4.1 MEQ/L (3.5-5.1); SODIUM LEVEL 139 MEQ/L (136-145); TOTAL PROTEIN 7.2 GM/DL (6.4-8.2)
[2020-11-13] MEDS ORDERED: BACT800T5 PO (08:13)
[2020-11-13] MEDS ORDERED: BACI1CAP PO (08:13)
[2020-11-13] MEDS ORDERED: CEPH500C PO (08:13)
[2020-11-13] MEDS ORDERED: TRAM50TA2 PO (08:13)
[2020-11-13] MEDS ORDERED: QC A650T3 PO (08:13)
[2020-11-13] MEDS: METHADONE 5 MG TAB (S0109) PO SCH (08:59)
[2020-11-13] MEDS: METHADONE 10 MG TAB (S0109) PO SCH (08:59)
[2020-11-13] MEDS ORDERED: HYDROmorphone HCL 2 MG/ML 1ML VIAL (J1170) IV ONE (09:00)
[2020-11-13] MEDS: ENOXAPARIN 40MG/0.4ML SYRINGE (J1650 PER 10MG) SC SCH (09:00)
--- NOTE | 2020-11-13 10:29 | DS.PDOC ---
Discharge Summary General Date of Admission Nov 09, 2020 at 04:38 Date of Discharge 11/13/20 Discharge Summary Please have loading unit tool setter call [employer] at [phone] for stat research program intern if discharge summary is needed urgently Hospitalis discharge summary has been dictated Job number [id number] Vital Signs/I&Os Vital Signs Date Time Temp Pulse Resp B/P (MAP) Pulse Ox O2 Delivery O2 Flow Rate FiO2 11/13/20 08:59 16 11/13/20 06:00 97.9 61 132/66 (88) 98 Room Air 11/11/20 21:45 10 I&O- Last 24 Hours up to 6 AM 11/13/20 05:59 Intake Total 2730 ml Output Total 2400 ml Balance 330 ml Laboratory Data Labs 24H Laboratory Tests 2 11/13/20 05:55: Immature Granulocyte % (Auto) 0.8, Neutrophils (%) (Auto) 57.3, Lymphocytes (%) (Auto) 27.6, Monocytes (%) (Auto) 9.9H, Eosinophils (%) (Auto) 3.9H, Basophils (%) (Auto) 0.5, Neutrophils # (Auto) 4.8, Lymphocytes # (Auto) 2.3, Monocytes # (Auto) 0.8, Eosinophils # (Auto) 0.3, Basophils # (Auto) 0.0, Nucleated Red Blood Cells % (auto) 0.0, Anion Gap 3L, Glomerular Filtration Rate > 60.0, Calcium Level 8.5, Total Bilirubin 0.2, Aspartate Amino Transf (AST/SGOT) 21, Alanine Aminotransferase (ALT/SGPT) 55, Alkaline Phosphatase 79, Total Protein 7.2, Albumin 3.3, Albumin/Globulin Ratio 0.8 CBC/BMP Laboratory Tests 11/13/20 05:55 Microbiology Microbiology 11/11/20 Gram Stain - Final, Complete 11/11/20 Wound Culture - Final, Complete 11/11/20 Anaerobic Culture - Final, Complete 11/11/20 Gram Stain - Final, Complete 11/11/20 Wound Culture - Final, Complete 11/11/20 Anaerobic Culture - Final, Complete Discharge Medications Scheduled Bacillus Coagulans (Bacid with Lactospore) 1 Each Capsule, 1 CAP PO WM Cephalexin (Cephalexin) 500 Mg Capsule, 500 MG PO TID Methadone HCl (Methadone HCl) 5 Mg Tablet, 55 MG PO DAILY, (Reported) Sulfamethoxazole/Trimethoprim (Bactrim Ds Tablet) 1 Each Tablet, 1 TAB PO BID Scheduled PRN Acetaminophen (Acetaminophen 8 Hour) 650 Mg Tablet.er, 1 TAB PO TIDP PRN for pain Tramadol HCl (Tramadol HCl) 50 Mg Tablet, 50 MG PO Q4HP PRN for pain Allergies Coded Allergies: No Known Allergies (Unverified , 07/03/19) MER DALY MD Nov 13, 2020 10:29
--- NOTE | 2020-11-13 12:01 | DSES ---
DISCHARGE SUMMARY DATE OF ADMISSION: 11/09/2020 DATE OF DISCHARGE: 11/13/2020 CONSULTANTS: 1. Asaf Alfaro M.D./Orthopedic Surgery 2. Mary Allen M.D./Plastic Surgery PRIMARY DISCHARGE DIAGNOSES: 1. Left dorsal forearm 2x2 cm abscess/cellulitis; status post incision and drainage, irrigation and debridement on 11/11/2020 by orthopedic surgery. 2. History of substance abuse on chronic methadone with heroin in the past. 3. Active tobacco abuse. 4. Hepatitis C. 5. Hyponatremia. 6. Abnormal liver function tests. DISCHARGE MEDICATIONS: 1. Bactrim one tablet p.o. b.i.d. 2. Cephalexin 500 p.o. t.i.d. 3. Bacid one cap p.o. with meals. 4. Acetaminophen 650 p.o. t.i.d. as needed. 5. Tramadol 50 mg every 4 hours as needed. 6. Methadone 5 mg daily. PREVIOUS MEDICATION/FOLLOW-UP INSTRUCTIONS/DISCHARGE INSTRUCTIONS/WOUND CARE: Per orthopedic surgeon, Dr. Alfaro. Home care referral. Primary care doctor follow-up within five days of hospital discharge. HOSPITAL COURSE: This is a 30-year-old male with history of Hepatitis C, heroin addiction on chronic methadone, who presented to the Emergency Room with left forearm redness, fluctuance and mass. He was found to have a 2x2 cm abscess, and was brought to the Emergency Room for incision and drainage by Dr. Alfaro after being on intravenous Unasyn without any improvement. Patient was afebrile with normal white count on discharge at 8.4; admission of 10.8. Microbiology on the left forearm from 11/11/2020 showed no organisms seen. Patient was evaluated by plastic surgery, Dr. Allen, for possible skin flap. Recommendations are to continue with dressing changes without any need for a skin flap. Continue with packing and antibiotics. Immediate closure is not indicated. PHYSICAL EXAMINATION ON DISCHARGE: VITALS: Temperature 97.9, pulse 61, respiratory rate 17, blood pressure 132/66, 98% on room air. GENERAL: Awake, alert and oriented to person, place and time, answering questions appropriately. HEENT: No JVD, thyromegaly, cervical lymphadenopathy. LUNGS: Clear to auscultation. No wheezing, rales or rhonchi. HEART: S1, S2, sinus rhythm. ABDOMEN: Soft, nontender, non-distended. EXTREMITIES: No pitting edema. Left upper extremity is bandaged. LABORATORY DATA ON DISCHARGE: White count 8.4, hemoglobin 14, hematocrit 42, platelet count 203,000. Sodium 139, potassium 4, chloride 105, bicarb 31, BUN 17, creatinine 0.73, glucose 104. MICROBIOLOGY: Left wrist and forearm wound culture no organisms, no cells seen, no growth aerobically, no growth anaerobically. IMAGING STUDIES: CT upper extremity left forearm revealed 1.5 x 0.7 x 1.3 abscess with cellulitis. Hand x-ray on 11/11/2020, radial ulnar x-ray, soft tissue injury, no acute fracture or dislocation. No foreign body identified. Dressing over the distal third of the forearm and wrist with underlying subcutaneous and skin abrasions/lacerations. TIME SPENT ON DISCHARGE: 30 minutes. [facility]
== END 2020-11-13 11:45 | disposition home or self-care (01) | DRG 383 ==
LOC: M ED 21:28 → M ED INP 11-09 04:38 → ENRESERV 11-09 07:44 → M MS5PR 11-09 09:00 → M MSPAV 11-10 15:12
PROVIDERS: ADMIT Internal Medicine; ATTEND General Practice
PROC: 0JBH0ZZ Excision of Left Lower Arm Subcutaneous Tissue and Fascia, Open Approach (ICD-10-PCS; principal; 2020-11-11 16:00)
DX: L03.114 Cellulitis of left upper limb (principal); E87.1 Hypo-osmolality and hyponatremia; F11.20 Opioid dependence, uncomplicated; F17.210 Nicotine dependence, cigarettes, uncomplicated; B19.20 Unspecified viral hepatitis C without hepatic coma; L02.414 Cutaneous abscess of left upper limb

== ENCOUNTER 2021-03-04 23:44 | Inpatient (IN) | payer MEDICAID, OTHER ==
[~2021-03-04] VITALS: Ht 182.9 cm; Wt 96.7 kg
[~2021-03-04 23:44] MED LIST changes: +BACI1CAP PO; +BACT800T5 PO; +CEPH500C PO; +METH5TA PO; +QC A650T3 PO; +TRAM50TA2 PO
[2021-03-05] MEDS ORDERED: NS 1,000 ML IV ONE (00:15)
[2021-03-05] MEDS ORDERED: CEFTAROLINE FOSAMIL 600 MG in D5W MINI-BAG PLUS 50 ML IV ONE (00:20)
[2021-03-05 00:37] LABS: BASO % 0.4 % (0.0-1.0); EOS # 0.4 10^3/uL (0.0-0.5); HEMATOCRIT 36.3 % (42.0-52.0); HEMOGLOBIN 12.6 g/dl (13.5-17.5); LYMPH % 18.7 % (24.0-44.0); MEAN CORPUSCULAR HEMOGLOBIN 28.9 pg (27.0-33.0); MEAN CORPUSCULAR HGB CONC 34.7 g/dl (32.0-36.5); MEAN CORPUSCULAR VOLUME 83.3 fl (80.0-96.0); MONO # 0.9 10^3/uL (0.0-0.8); NEUTROPHILS # 7.5 10^3/uL (1.5-8.5); NEUTROPHILS % 68.4 % (36.0-66.0); PLATELET COUNT, AUTOMATED 203 10^3/uL (150-450); RED BLOOD COUNT 4.36 10^6/uL (4.30-6.10); WHITE BLOOD COUNT 10.9 10^3/uL (4.0-10.0)
[2021-03-05 00:50] LABS: ERYTHROCYTE SEDIMENTATION RATE 48 mm/hr (0-15)
[2021-03-05 01:03] LABS: ALBUMIN 3.5 GM/DL (3.2-5.2); ALT/SGPT 92 U/L (12-78); BILIRUBIN,DIRECT 0.3 MG/DL (0.0-0.2); BILIRUBIN,TOTAL 0.8 MG/DL (0.2-1.0); BLOOD UREA NITROGEN 15 MG/DL (7-18); C REACTIVE PROTEIN QUANTITATIV 8.71 MG/DL (0.00-0.30); CALCIUM LEVEL 8.3 MG/DL (8.5-10.1); CARBON DIOXIDE LEVEL 29 MEQ/L (21-32); CHLORIDE LEVEL 102 MEQ/L (98-107); CREATININE FOR GFR 0.82 MG/DL (0.70-1.30); GLOMERULAR FILTRATION RATE > 60.0 (>60); GLUCOSE, FASTING 88 MG/DL (70-100); NT-PRO BNP 11 PG/ML (<125); POTASSIUM SERUM 3.7 MEQ/L (3.5-5.1); SODIUM LEVEL 136 MEQ/L (136-145); TOTAL PROTEIN 7.7 GM/DL (6.4-8.2)
[2021-03-05] MEDS ORDERED: KETOROLAC 30 MG/ML 1ML VIAL IV ONE ×2 (01:20→04:15)
[2021-03-05 01:37] LABS: RSV AMPLIFICATION NEGATIVE (NEGATIVE)
[2021-03-05] MEDS ORDERED: KETOROLAC 30 MG/ML 1ML VIAL IV PRN (02:00)
[2021-03-05] MEDS ORDERED: NS 1,000 ML IV SCH (02:00)
[2021-03-05] MEDS ORDERED: ONDANSETRON 4MG/2ML VIAL IV PRN (02:05)
--- NOTE | 2021-03-05 02:05 | HPEPDOC ---
[facility] Medical History & Physical Date of Admission Mar 05, 2021 Date of Service: Mar 05, 2021 Attending Physician: MER DALY MD History and Physical CHIEF COMPLAINT: [30 y/o male c/o rue swelling, redness x2 days] HISTORY OF PRESENT ILLNESS: [This is a 30 y/o male IV drug abuser who presents to our ed with a complaint of new and worsening right upper extremity pain, redness, swelling and spontaneous drainage that began yesterday. Patient states that he believes that the infection began several weeks ago when he "missed" injecting heroin. Patient states that the redness would come and go but in the past two days became severe. Patient states that he noticed yesterday that an area on the right forearm just below the elbow opened up and drained a clear liquid. Patient states that he was going to come to the ED yesterday after this happened but he fell asleep. Patient states that he last used heroin yesterday at 4 am. Patient at the time of my exam states that he is still able to move his arm freely, it is simple painful. Patient states that he has full sensation of the arm and hand as well. Patient is denying fevers, chills, chest pain, sob, nausea, vomiting, abd pain.] PAST MEDICAL HISTORY: 1. [GERD PAST SURGICAL HISTORY: 1. [Reviewed - none SOCIAL HISTORY: Tobacco use:[Current smoker] ETOH: [Denies] IV drug use: [Heroin] FAMILY HISTORY: Reviewed - none pertinent ALLERGIES: Please see below. REVIEW OF SYSTEMS: CONSTITUTIONAL: [Denies fevers, chills]. HEENT: [Denies uri type sx]. CARDIOVASCULAR: [Denies chest pain, palpitations]. RESPIRATORY: [Denies sob, cough, wheezing]. GASTROINTESTINAL: [Denies n/v/d/c ]. GENITOURINARY: [Denies dysuria]. SKIN: [See HPI]. MUSCULOSKELETAL: [See HPI]. NEUROLOGICAL: [Denies syncope, paresthesias]. ENDOCRINE: [Denies hx of DM]. HEMATOLOGIC/LYMPHATIC: [Denies easy bruising]. HOME MEDICATIONS: Please see below. PHYSICAL EXAMINATION: VITAL SIGNS: Please see below. GENERAL APPEARANCE: [This is a 30 y/o male who appears to me to possibly be under the influence. Patient takes some time to answer questions, speaks slow and does not open his eyes for a few seconds after initial introduction. Answers questions appropriately. He is in no acute distress]. HEENT: [No mass or lesion. EOMI. No scleral icterus. Nares patent. Oral mucosa moist. Poor dentition]. CARDIOVASCULAR: [Regular rate, rhythm. No murmurs, rubs, gallops]. LUNGS: [Good air flow b/l. No wheezing, rales, rhonchi]. ABDOMEN: [Soft, nontender]. MUSCULOSKELETAL: [The right upper extremity is grossly edematous with erythema from the wrist to the upper arm. The right hand is edematous but freely moves. The patient is able to bend his elbow but is in obvious pain while doing so. There is an open wound on the ventral surface of the forearm approx 2 cm across with mucopurulent drainage. Distal radial and ulnar pulses are intact. Sensation in the hand intact.]. EXTREMITIES: [No pedal edema noted. No overlying skin changes. Pulses intact.]. NEUROLOGICAL: [Speech slow but clear. A+Ox3. No focal deficits]. PSYCHIATRIC: [Mood and affect appear appropriate.]. LABORATORY DATA: See below. IMAGING: [Extremity ultrasound performed in the ED] MICROBIOLOGY: Please see below. ASSESSMENT: [This is a 30 y/o male IV drug abuser who presents to our ed with a complaint of new and worsening right upper extremity pain, redness, swelling and spontaneous drainage that began yesterday. Patient states that he believes that the infection began several weeks ago when he "missed" injecting heroin. Patient states that the redness would come and go but in the past two days became severe. Patient states that he noticed yesterday that an area on the right forearm just below the elbow opened up and drained a clear liquid.]. . PLAN: 1. [RUE cellulitis - Patient likely had abscess that spontaneously drained. The area does not appear necrotic - Patient given ceftaroline in the ed. will continue on the floor - wound culture/blood cultures obtained - fluid bolus given in the ed - patient not meeting sirs/sepsis criteria - pain control with toradol for now - zofran for nausea - admit to med surg for iv abx 2. IVDA - will monitor for sx of withdrawal DVT prophylaxis - mechanical ]. Vital Signs Vital Signs Date Time Temp Pulse Resp B/P (MAP) Pulse Ox O2 Delivery O2 Flow Rate FiO2 03/05/21 01:49 03/05/21 01:47 84 16 98 Room Air 03/04/21 23:45 96.7 Laboratory Data Labs 24H Laboratory Tests 2 03/05/21 00:16: Immature Granulocyte % (Auto) 0.5, Neutrophils (%) (Auto) 68.4H, Lymphocytes (%) (Auto) 18.7L, Monocytes (%) (Auto) 8.0, Eosinophils (%) (Auto) 4.0H, Basophils (%) (Auto) 0.4, Neutrophils # (Auto) 7.5, Lymphocytes # (Auto) 2.0, Monocytes # (Auto) 0.9H, Eosinophils # (Auto) 0.4, Basophils # (Auto) 0.0, Nucleated Red Blood Cells % (auto) 0.0, Erythrocyte Sedimentation Rate 48H, Anion Gap 5L, Glomerular Filtration Rate > 60.0, Calcium Level 8.3L, Total Bilirubin 0.8, Direct Bilirubin 0.3H, Aspartate Amino Transf (AST/SGOT) 60H, Alanine Aminotransferase (ALT/SGPT) 92H, Alkaline Phosphatase 83, C-Reactive Protein, Quantitative 8.71H, [id number]-Type Natriuretic Peptide 11, Total Protein 7.7, Albumin 3.5, Albumin/Globulin Ratio 0.8, Thyroid Stimulating Hormone (TSH) 1.050 03/05/21 00:17: Coronavirus (COVID-19)(PCR) NEGATIVE, Influenza Type A (RT-PCR) NEGATIVE, Influenza Type B (RT-PCR) NEGATIVE, Respiratory Syncytial Virus (PCR) NEGATIVE CBC/BMP Laboratory Tests 03/05/21 00:16 Microbiology Microbiology 03/05/21 Blood Culture, Received Pending 03/05/21 Blood Culture, Received Pending Home Medications No Active Prescriptions or Reported Meds Allergies Coded Allergies: No Known Allergies (Unverified , 07/03/19) A-FIB/CHADSVASC A-FIB History Current/History of A-Fib/PAF?: No TEQUILA KAMARA Mar 05, 2021 02:05
[2021-03-05] MEDS ORDERED: ACETAMINOPHEN 500 MG TAB PO ONE (04:15)
[2021-03-05] MEDS: LACTOBACILLUS ACIDOPHILUS CAP (BACID) PO SCH ×4 (08:00→21:40)
--- NOTE | 2021-03-05 08:29 | REP ---
INDICATION: assess for abscess. COMPARISON: None. TECHNIQUE: Real-time sonographic evaluation of right forearm performed in the region of pain and swelling. FINDINGS: No mass or fluid collection is seen. There is no sonographic evidence of abscess. There is scattered ill-defined subcutaneous soft tissue edema. IMPRESSION: No sonographic evidence of abscess at the site of pain and swelling in the right forearm. A preliminary report was provided by virtual Radiology at the time of the exam. <Electronically signed by Mj Gonzalez > 03/05/21 [id number]
[2021-03-05 08:55] LABS: HEMATOCRIT 26.9 % (42.0-52.0); MEAN CORPUSCULAR HEMOGLOBIN 29.5 pg (27.0-33.0); MEAN CORPUSCULAR HGB CONC 34.6 g/dl (32.0-36.5); MEAN CORPUSCULAR VOLUME 85.4 fl (80.0-96.0); PLATELET COUNT, AUTOMATED 136 10^3/uL (150-450); RED BLOOD COUNT 3.15 10^6/uL (4.30-6.10); WHITE BLOOD COUNT 6.5 10^3/uL (4.0-10.0)
[2021-03-05 08:58] LABS: HEMOGLOBIN 9.3 g/dl (13.5-17.5)
[2021-03-05 09:31] VITALS: BP 94/60
[2021-03-05 09:33] LABS: ALBUMIN 2.2 GM/DL (3.2-5.2); ALT/SGPT 58 U/L (12-78); BILIRUBIN,TOTAL 0.5 MG/DL (0.2-1.0); BLOOD UREA NITROGEN 9 MG/DL (7-18); CALCIUM LEVEL 6.2 MG/DL (8.5-10.1); CARBON DIOXIDE LEVEL 24 MEQ/L (21-32); CHLORIDE LEVEL 115 MEQ/L (98-107); CREATININE FOR GFR 0.41 MG/DL (0.70-1.30); GLOMERULAR FILTRATION RATE > 60.0 (>60); GLUCOSE, FASTING 86 MG/DL (70-100); MAGNESIUM LEVEL 1.7 MG/DL (1.8-2.4); POTASSIUM SERUM 2.9 MEQ/L (3.5-5.1); SODIUM LEVEL 147 MEQ/L (136-145); TOTAL PROTEIN 4.9 GM/DL (6.4-8.2)
[2021-03-05 14:00] VITALS: BP 117/73
[2021-03-05] MEDS ORDERED: POTASSIUM CHLORIDE 10 MEQ SR TABLET PO ONE ×2 (14:00→21:00)
[2021-03-05] MEDS ORDERED: METHADONE 10 MG TAB (S0109) PO ONE (14:10)
[2021-03-05] MEDS ORDERED: PILL CUTTER 1 EACH XX PRN (15:05)
[2021-03-05] MEDS: CEFTAROLINE FOSAMIL 600 MG in D5W MINI-BAG PLUS 50 ML IV SCH (15:19)
[2021-03-05] MEDS: METHADONE 10 MG TAB (S0109) PO SCH (15:19)
--- NOTE | 2021-03-05 18:09 | IPNPDOC ---
Text Note Date of Service The patient was seen on 03/05/21. NOTE Hospitalist Progress Note Subjective: Patient was sleeping in the bed when I entered the room, but he was easily aroused. He still does have quite a bit of pain in the right upper extremity, however the erythema has significantly improved. He does still have quite a bit of purulent drainage in the bandage at this time. Otherwise, his only complaint at this time is that he typically gets 105 mg of methadone from [facility], and he is feeling a bit anxious about this since he has not had any methadone since admission. Objective: General: Awake, alert, oriented 3. Not in any acute distress. HEENT: Head normocephalic, atraumatic, sclera are nonicteric. Hearing is grossly intact to conversation. Respiratory: Clear to auscultation bilaterally with no wheezes, rales, or rh onchi. Cardiovascular: Regular rate and rhythm, with no rubs, gallops, or murmur. Abdomen: Soft, nontender, nondistended, no hepatosplenomegaly appreciated. Bowel sounds present. Extremities: 2+ pulses in the radial and dorsalis pedis bilaterally. No evidence of clubbing or cyanosis. Erythema of the right upper extremity has essentially resolved. The arm is still somewhat edematous, and he still has quite a bit of purulent drainage from the I&D wound. Assessment/Plan: Right upper extremity cellulitis -Continue ceftaroline until cultures have resulted, then switch to oral antibiotics IV drug abuse -Continue to monitor for symptoms of withdrawal -We have confirmed with [facility] that his usual dose of methadone is 105 mg daily. We will start this now at this time. DVT prophylaxis -Mechanical VS,Fishbone, I+O VS, Fishbone, I+O Laboratory Tests 03/05/21 00:16 03/05/21 08:41 Vital Signs Date Time Temp Pulse Resp B/P (MAP) Pulse Ox O2 Delivery O2 Flow Rate FiO2 03/05/21 09:31 97.2 71 16 94/60 (71) 99 Room Air SWEETIECATHY ALEJANDRE Mar 05, 2021 13:39
[2021-03-05 22:00] VITALS: BP 132/75
[2021-03-06] MEDS: CEFTAROLINE FOSAMIL 600 MG in D5W MINI-BAG PLUS 50 ML IV SCH ×2 (01:30→12:32)
[2021-03-06 06:00] VITALS: BP 120/70
[2021-03-06 06:53] LABS: HEMATOCRIT 37.2 % (42.0-52.0); HEMOGLOBIN 12.8 g/dl (13.5-17.5); MEAN CORPUSCULAR HEMOGLOBIN 29.3 pg (27.0-33.0); MEAN CORPUSCULAR HGB CONC 34.4 g/dl (32.0-36.5); MEAN CORPUSCULAR VOLUME 85.1 fl (80.0-96.0); PLATELET COUNT, AUTOMATED 201 10^3/uL (150-450); RED BLOOD COUNT 4.37 10^6/uL (4.30-6.10); WHITE BLOOD COUNT 7.1 10^3/uL (4.0-10.0)
[2021-03-06 07:15] LABS: ALBUMIN 2.9 GM/DL (3.2-5.2); ALT/SGPT 73 U/L (12-78); BILIRUBIN,TOTAL 0.2 MG/DL (0.2-1.0); BLOOD UREA NITROGEN 9 MG/DL (7-18); CALCIUM LEVEL 8.8 MG/DL (8.5-10.1); CARBON DIOXIDE LEVEL 27 MEQ/L (21-32); CHLORIDE LEVEL 106 MEQ/L (98-107); CREATININE FOR GFR 0.55 MG/DL (0.70-1.30); GLOMERULAR FILTRATION RATE > 60.0 (>60); GLUCOSE, FASTING 90 MG/DL (70-100); MAGNESIUM LEVEL 2.1 MG/DL (1.8-2.4); POTASSIUM SERUM 4.6 MEQ/L (3.5-5.1); SODIUM LEVEL 139 MEQ/L (136-145); TOTAL PROTEIN 7.1 GM/DL (6.4-8.2)
[2021-03-06] MEDS: LACTOBACILLUS ACIDOPHILUS CAP (BACID) PO SCH ×4 (08:27→20:23)
[2021-03-06] MEDS: METHADONE 10 MG TAB (S0109) PO SCH (08:27)
--- NOTE | 2021-03-06 11:28 | IPNPDOC ---
Text Note Date of Service The patient was seen on 03/06/21. NOTE Hospitalist Progress Note Subjective: Patient reports that he still does continue to have pain and swelling of the right upper extremity, but feels as though it is getting better on a daily basis. He still continues to have a significant amount of purulent drainage from the wound. Otherwise, denies any fevers. He was started on his usual home dose of methadone, and he is not having any symptoms of withdrawal at this time. Remainder of his review of systems is negative. Objective: General: Awake, alert, oriented 3. Not in any acute distress. HEENT: Head normocephalic, atraumatic, sclera are nonicteric. Hearing is grossly intact to conversation. Respiratory: Clear to auscultation bilaterally with no wheezes, rales, or rhonchi. Cardiovascular: Regular rate and rhythm, with no rubs, gallops, or murmur. Abdomen: Soft, nontender, nondistended, no hepatosplenomegaly appreciated. Bowel sounds present. Extremities: 2+ pulses in the radial and dorsalis pedis bilaterally. No evidence of clubbing or cyanosis. The arm is still somewhat edematous, and he still has copious purulent drainage from the I&D wound. Assessment/Plan: Right upper extremity cellulitis -Continue ceftaroline until cultures have resulted, then switch to oral antibiotics -During his last admission he did have resistance to some antibiotics, I cannot see any record of MRSA though. IV drug abuse -Continue to monitor for symptoms of withdrawal -Continue [id number] mg daily DVT prophylaxis -Mechanical VS,Fishbone, I+O VS, Fishbone, I+O Laboratory Tests 03/06/21 06:27 Vital Signs Date Time Temp Pulse Resp B/P (MAP) Pulse Ox O2 Delivery O2 Flow Rate FiO2 03/06/21 06:00 98.4 63 16 120/70 (87) 99 Room Air I&O- Last 24 Hours up to 6 AM 03/06/21 06:00 Intake Total 3410 ml Output Total 2400 ml Balance 1010 ml CATHY PITT DO Mar 06, 2021 11:28
[2021-03-06 14:00] VITALS: BP 115/65
[2021-03-06 21:47] VITALS: BP 114/77
[2021-03-07] MEDS: CEFTAROLINE FOSAMIL 600 MG in D5W MINI-BAG PLUS 50 ML IV SCH ×2 (00:44→13:07)
[2021-03-07 06:00] VITALS: BP 138/79
[2021-03-07 06:22] LABS: HEMATOCRIT 42.7 % (42.0-52.0); HEMOGLOBIN 14.8 g/dl (13.5-17.5); MEAN CORPUSCULAR HGB CONC 34.7 g/dl (32.0-36.5); MEAN CORPUSCULAR VOLUME 83.7 fl (80.0-96.0); PLATELET COUNT, AUTOMATED 239 10^3/uL (150-450); WHITE BLOOD COUNT 7.2 10^3/uL (4.0-10.0)
[2021-03-07 06:46] LABS: ALBUMIN 3.3 GM/DL (3.2-5.2); ALT/SGPT 71 U/L (12-78); BILIRUBIN,TOTAL 0.3 MG/DL (0.2-1.0); BLOOD UREA NITROGEN 11 MG/DL (7-18); CALCIUM LEVEL 8.9 MG/DL (8.5-10.1); CARBON DIOXIDE LEVEL 30 MEQ/L (21-32); CHLORIDE LEVEL 103 MEQ/L (98-107); GLOMERULAR FILTRATION RATE > 60.0 (>60); GLUCOSE, FASTING 86 MG/DL (70-100); MAGNESIUM LEVEL 2.1 MG/DL (1.8-2.4); POTASSIUM SERUM 4.7 MEQ/L (3.5-5.1); SODIUM LEVEL 137 MEQ/L (136-145)
[2021-03-07] MEDS: LACTOBACILLUS ACIDOPHILUS CAP (BACID) PO SCH ×3 (08:18→17:09)
[2021-03-07] MEDS: METHADONE 10 MG TAB (S0109) PO SCH (08:19)
[2021-03-07 14:00] VITALS: BP 121/67
--- NOTE | 2021-03-07 14:16 | IPNPDOC ---
Subjective Date Seen The patient was seen on 03/07/21. Subjective Chief Complaint/HPI Mr. Parmar is a 30 year old male with history of IV drug use who is here for right upper extremity cellulitis and draining ulcer. This morning, his cellulitis looks much improved. It has receded from the purple body marker and is just around the ulcer. Bandages were removed. Ulcer is deep (stage 3) and is bleeding. Will place a consult for wound care. Objective Physical Examination General Exam: Positive: Alert, Cooperative Eye Exam: Negative: Sclera icteric ENT Exam: Positive: Atraumatic Neck Exam: Positive: Supple Chest Exam: Positive: Clear to auscultation Heart Exam: Positive: Rate Normal, Regular Rhythm Abdomen Exam: Positive: Normal bowel sounds, Soft; Negative: Tenderness Neuro Exam: Positive: Normal Speech Psych Exam: Positive: Mental status NL, Mood NL Assessment /Plan Assessment Mr. Parmar is a 30 year old male with history of IV drug use who is here for right upper extremity cellulitis and draining ulcer. Cellulitis improved with ceftaroline. Patient still have draining ulcer. Will consult advance wound care for dressing recommendations and possible discharge home afterwards Plan/VTE VTE Prophylaxis Ordered?: Yes Plan 1. Cellulitis of right arm -Improved. Receded from purple body marker -Continue with ceftaroline day 3 2. Stage 3 ulcer -Consulted advance wound care -Pending recommendations -Can anticipate discharge after consultation with wound care 3. History of IV drug abuse -No signs of withdrawal at this time -Continue with methadone 4. DVT ppx -SCD and TEDs Disposition: Pending advance wound care consultation VS, I&O, 24H, Fishbone Vital Signs/I&O Vital Signs Date Time Temp Pulse Resp B/P (MAP) Pulse Ox O2 Delivery O2 Flow Rate FiO2 03/07/21 06:00 98.1 54 20 138/79 (98) 99 Room Air I&O- Last 24 Hours up to 6 AM 03/07/21 06:00 Intake Total 2630 ml Output Total 2700 ml Balance -70 ml Laboratory Data 24H LABS Laboratory Tests 2 03/07/21 06:01: Nucleated Red Blood Cells % (auto) 0.0, Anion Gap 4L, Glomerular Filtration Rate > 60.0, Calcium Level 8.9, Magnesium Level 2.1, Total Bilirubin 0.3, Aspartate Amino Transf (AST/SGOT) 41H, Alanine Aminotransferase (ALT/SGPT) 71, Alkaline Phosphatase 81, Total Protein 8.0, Albumin 3.3, Albumin/Globulin Ratio 0.7 CBC/BMP Laboratory Tests 03/07/21 06:01 Microbiology Microbiology 03/05/21 Wound Culture - Final, Complete Streptococcus Intermedius 03/05/21 Blood Culture - Preliminary, Resulted No Growth after 48 hours. All Specime... 03/05/21 Blood Culture - Preliminary, Resulted No Growth after 48 hours. All Specime... KAMILLA GOMEZ DO Mar 07, 2021 14:16
[2021-03-07] MEDS ORDERED: AUGM875T28 PO (18:29)
[2021-03-07] MEDS ORDERED: PROB250C PO (18:29)
--- NOTE | 2021-03-07 21:17 | DS.PDOC ---
Discharge Summary General Date of Admission Mar 04, 2021 at 23:45 Date of Discharge Mar 07, 2021 Discharge Summary PROCEDURES PERFORMED DURING STAY: None ADMITTING DIAGNOSES: 1. Right upper extremity cellulitis 2. Right upper extremity grade III ulcer 3. IVDA with heroin DISCHARGE DIAGNOSES: 1. Right upper extremity cellulitis 2. Right upper extremity grade III ulcer 3. IVDA with heroin COMPLICATIONS/CHIEF COMPLAINT: Skin Problem. HISTORY OF PRESENT ILLNESS: Copied from admitting provider's H&P " This is a 30 y/o male IV drug abuser who presents to our ed with a complaint of new and worsening right upper extremity pain, redness, swelling and spontaneous drainage that began yesterday. Patient states that he believes that the infection began several weeks ago when he "missed" injecting heroin. Patient states that the redness would come and go but in the past two days became severe. Patient states that he noticed yesterday that an area on the right forearm just below the elbow opened up and drained a clear liquid. Patient states that he was going to come to the ED yesterday after this happened but he fell asleep. Patient states that he last used heroin yesterday at 4 am. Patient at the time of my exam states that he is still able to move his arm freely, it is simple painful. Patient states that he has full sensation of the arm and hand as well. Patient is denying fevers, chills, chest pain, sob, nausea, vomiting, abd pain. " HOSPITAL COURSE: The right upper extremity cellulitis was marked with a purple surgical pen and patient was placed on Ceftaroline. Cellulitis responded well and quickly to the Ceftaroline. Would culture grew Streptococcus intermedius which was sensitive to PCN. This morning, his cellulitis has receded back to the ulcer. Ulcer is deep and was bleeding. He had a similar ulcer on his wrist, and he felt comfortable caring for it on his own. Today, patient feels well. Denies any chest pain or dyspnea. No fever or leukocytosis. Patient was discharged home with instructions to contact [facility], Dr. Buenrostro for care of his right upper extremity wound. DISCHARGE MEDICATIONS: Please see below. ALLERGIES: Please see below. PHYSICAL EXAMINATION ON DISCHARGE: VITAL SIGNS: Please see below. GENERAL: Comfortable, in no apparent distress. HEENT: EOMI, sclera clear. NECK: Supple. RESPIRATORY: Lungs clear to auscultation bilaterally, no rales, wheeze or rhonchi. CARDIOVASCULAR: Regular rate and rhythm. ABDOMEN: Soft, nontender, no guarding or rebound tenderness. Normal bowel sounds. MUSCLE SKELETAL: Muscle strength 5/5 in all extremities. NEUROLOGICAL: CN 312 grossly intact, no focal deficits noted. PSYCHOLOGICAL: Normal mood and affect LABORATORY DATA: Please see below. IMAGING: Radiologist interpretation Right upper extremity non vascular US No sonographic evidence of abscess at the site of pain and swelling in the right forearm. PROGNOSIS: Good ACTIVITY: As tolerated. DIET: As tolerated DISCHARGE PLAN: Home DISPOSITION: 01 Home, Self-Care. DISCHARGE INSTRUCTIONS: 1. Follow up with PCP within 1 week 2. Referral to [facility], Dr. Buenrostro, within 1 week 3. Take antibiotics to completion ITEMS TO FOLLOWUP ON ON OUTPATIENT: 1. Right upper extremity wound DISCHARGE CONDITION: Stable. Total time spend on discharge planning, discharge summary, and medication reconciliation: 55 minutes Vital Signs/I&Os Vital Signs Date Time Temp Pulse Resp B/P (MAP) Pulse Ox O2 Delivery O2 Flow Rate FiO2 03/07/21 14:00 98.2 64 16 121/67 (85) 100 Room Air I&O- Last 24 Hours up to 6 AM 03/07/21 06:00 Intake Total 2630 ml Output Total 2700 ml Balance -70 ml Laboratory Data Labs 24H Laboratory Tests 2 03/07/21 06:01: Nucleated Red Blood Cells % (auto) 0.0, Anion Gap 4L, Glomerular Filtration Rate > 60.0, Calcium Level 8.9, Magnesium Level 2.1, Total Bilirubin 0.3, Aspartate Amino Transf (AST/SGOT) 41H, Alanine Aminotransferase (ALT/SGPT) 71, Alkaline Phosphatase 81, Total Protein 8.0, Albumin 3.3, Albumin/Globulin Ratio 0.7 CBC/BMP Laboratory Tests 03/07/21 06:01 Microbiology Microbiology 03/05/21 Wound Culture - Final, Complete Streptococcus Intermedius 03/05/21 Blood Culture - Preliminary, Resulted No Growth after 48 hours. All Specime... 03/05/21 Blood Culture - Preliminary, Resulted No Growth after 48 hours. All Specime... Discharge Medications Scheduled Amoxicillin/Potassium Clav (Augmentin 875-125 Tablet) 1 Each Tablet, 1 TAB PO BID Saccharomyces Boulardii (Probiotic) 250 Mg Capsule, 250 MG PO DAILY Allergies Coded Allergies: No Known Allergies (Unverified , 07/03/19) KAMILLA GOMEZ DO Mar 07, 2021 21:17
== END 2021-03-07 19:00 | disposition home or self-care (01) | DRG 383 ==
LOC: M ED 23:44 → M ED INP 23:45 → ENRESERV 03-05 07:25 → M MS5PR 03-05 09:09
PROVIDERS: ADMIT General Practice; ATTEND Internal Medicine
DX: L03.113 Cellulitis of right upper limb (principal); F11.10 Opioid abuse, uncomplicated; F17.200 Nicotine dependence, unspecified, uncomplicated; Z20.822 Contact with and (suspected) exposure to COVID-19; L98.498 Non-pressure chronic ulcer of skin of other sites with other specified severity

== ENCOUNTER 2021-04-03 09:51 | Inpatient (IN) | payer OTHER ==
[~2021-04-03] VITALS: Ht 182.9 cm; Wt 89.9 kg
[~2021-04-03 09:51] MED LIST changes: +AUGM875T28 PO; +PROB250C PO
[2021-04-03] MEDS ORDERED: METH10CO PO (10:06)
[2021-04-03 11:17] LABS: BASO % 0.2 % (0.0-1.0); EOS # 0.2 10^3/uL (0.0-0.5); EOS % 1.8 % (0.0-3.0); HEMATOCRIT 38.8 % (42.0-52.0); HEMOGLOBIN 13.5 g/dl (13.5-17.5); LYMPH # 1.4 10^3/uL (1.5-5.0); LYMPH % 10.9 % (24.0-44.0); MEAN CORPUSCULAR HGB CONC 34.8 g/dl (32.0-36.5); MEAN CORPUSCULAR VOLUME 83.3 fl (80.0-96.0); MONO % 8.3 % (2.0-8.0); NEUTROPHILS # 9.8 10^3/uL (1.5-8.5); NEUTROPHILS % 78.4 % (36.0-66.0); PLATELET COUNT, AUTOMATED 234 10^3/uL (150-450); RED BLOOD COUNT 4.66 10^6/uL (4.30-6.10); WHITE BLOOD COUNT 12.5 10^3/uL (4.0-10.0)
[2021-04-03 11:44] LABS: ERYTHROCYTE SEDIMENTATION RATE 58 mm/hr (0-15)
[2021-04-03] MEDS ORDERED: VANCOMYCIN HCL 2,000 MG in D5W 500 ML IV ONE (11:45)
[2021-04-03] MEDS ORDERED: VANCOMYCIN HCL 1,000 MG, VIAL MATE ADAPTER 1 EACH in NS 250 ML IV ONE ×2 (12:00→13:00)
--- NOTE | 2021-04-03 12:03 | REP ---
INDICATION: inflammation/abscess COMPARISON: None. TECHNIQUE: AP and lateral views of the right forearm. FINDINGS: Osseous structures and joint spaces are intact and normal. Mild generalized overlying soft tissue swelling/edema cannot be excluded. No underlying subcutaneous emphysema, abnormal calcification or foreign body identified. IMPRESSION: . No acute fracture or dislocation. <Electronically signed by Leo Yang > 04/03/21 [id number]
[2021-04-03] MEDS ORDERED: NS 1,000 ML IV ONE (12:40)
--- NOTE | 2021-04-03 12:45 | REP ---
INDICATION: cellulitis/abscess meth injection COMPARISON: 03/05/2021 TECHNIQUE: Directed grayscale and color B-mode ultrasound examination using linear high-frequency transducer. FINDINGS: Directed ultrasound examination of the mid to distal right forearm over the area of maximal pain and swelling demonstrates a 3.8 x 1.2 x 2.5 cm complex fluid collection with peripheral vascularity suggesting abscess. Limited evaluation of the adjacent vasculature demonstrates nonocclusive thrombus in the cephalic vein. IMPRESSION: 1. Complex collection as described above most compatible with abscess. 2. Findings suggesting nonocclusive thrombus in the adjacent cephalic vein. <Electronically signed by Leo Yang > 04/03/21 [id number]
[2021-04-03 13:31] LABS: ALBUMIN 3.1 GM/DL (3.2-5.2); ALT/SGPT 53 U/L (12-78); BILIRUBIN,DIRECT 0.2 MG/DL (0.0-0.2); BILIRUBIN,TOTAL 0.7 MG/DL (0.2-1.0); BLOOD UREA NITROGEN 11 MG/DL (7-18); C REACTIVE PROTEIN QUANTITATIV 9.27 MG/DL (0.00-0.30); CALCIUM LEVEL 8.2 MG/DL (8.5-10.1); CARBON DIOXIDE LEVEL 28 MEQ/L (21-32); CHLORIDE LEVEL 101 MEQ/L (98-107); CREATININE FOR GFR 0.62 MG/DL (0.70-1.30); GLOMERULAR FILTRATION RATE > 60.0 (>60); GLUCOSE, FASTING 97 MG/DL (70-100); LIPASE 31 U/L (73-393); POTASSIUM SERUM 4.4 MEQ/L (3.5-5.1); SODIUM LEVEL 133 MEQ/L (136-145)
[2021-04-03] MEDS ORDERED: HOME MED LIST COMPLETE! XX SCH (13:45)
[2021-04-03 13:50] LABS: RSV AMPLIFICATION NEGATIVE (NEGATIVE)
[2021-04-03] MEDS ORDERED: LIDOCAINE W/EPINEPHRINE 1% 20ML VIAL SC ONE (14:15)
--- NOTE | 2021-04-03 14:34 | HPEPDOC ---
[facility] Medical History & Physical Date of Admission Apr 03, 2021 Date of Service: Apr 03, 2021 Attending Physician: ARTHUR LAN DO History and Physical CHIEF COMPLAINT: RUE swelling, redness HISTORY OF PRESENT ILLNESS: Carlton is 30M PMH cellulitic infxn, active IV drug use who presented to ED w/ R UE swelling and redness. He noticed 2 small red "bumps" on proximal right forearm 4-5days ago that have become more swollen over the last 48hrs. Reports significant tenderness w/ direct palpation, warmth. Over the last 48hrs, reports worsening redness RUE and swelling. Denies open wounds, recent trauma, drainage at the site. He tells me he has had multiple cellulitic infxns (both RUE and LUE), the most recent about 1mo ago that required surgical drainage. His last hospitalization was for cellulitis RUE and he was treated w/ IV abx for 1wk. Reports hx dental infxns (abscesses) that resulted in having multiple teeth removed. He tells me he is an active IV drug user, most recently used meth last night in E. Reports avoiding injecting in E recently due to current presentation. Denies fevers/chills, sweats, palpitations, n/v. Denies additional sites of infxn at this time. PAST MEDICAL HISTORY: 1. GERD 2. Anxiety 3. Cellulitic infxn (RUE, LUE) PAST SURGICAL HISTORY: 1. Dental implant 2. Surgical drainage of abscess (RUE, LUE) SOCIAL HISTORY: Resides in: Currently homeless Tobacco use: 1/2ppd x 13yrs ETOH: denies Illicit drug use: Heroin, Crack, Meth, Hortencia. Most recently only using Meth and Hortencia and reports injecting meth day prior to admission IV drug use: Yes, active IV drug user Other relevant social factors: According to patient, his parents' address is listed as his permanent address but he is not allowed to live there FAMILY HISTORY: HTN, DM2, Hypothyroidism ALLERGIES: Please see below. REVIEW OF SYSTEMS: CONSTITUTIONAL: Denies fevers/chills, sweats HEENT: Denies headache, changes in vision, recent illness CARDIOVASCULAR: denies chest pain, palpitations RESPIRATORY: denies SOB, cough GASTROINTESTINAL: denies abd pain, n/v, changes in BM GENITOURINARY: denies urinary sx SKIN: RUE swelling, redness, warmth w/out open wound or active drainage/bleeding. Denies recent trauma to skin RUE. Reports recent IV drug injections LUE MUSCULOSKELETAL: no muscle ache, joint pain NEUROLOGICAL: no changes in sensation, numbness/tingling PSYCHIATRIC: Reports depressed mood 2/2 homelessness. Denies anxiety, SI HOME MEDICATIONS: Please see below. PHYSICAL EXAMINATION: VITAL SIGNS: Temperature 97.6, pulse 98, respiratory rate 18, blood pressure 133/84, pulse oximetry 100% on room air. GENERAL APPEARANCE: sitting up in stretcher, NAD, drowsy but responds to verbal stimuli, cooperative HEENT: NC/AT, EOMI, b/l pinpoint pupils, nares patent, moist mucous membranes, p oor dentition w/ many teeth missing, no lymphadenopathy CARDIOVASCULAR: normal heart sounds, RRR, no MRG LUNGS: CTA b/l, no WRR, no accessory muscles used ABDOMEN: decreased BS, soft, nontender, nondistended SKIN: significant swelling and diffuse redness from proximal to distal radius RUE, 2 closed non-draining fluid-filled bumps noted near proximal radius that are tense and tender w/ mild palpation; track muniz on LUE; no additional sites of infxn EXTREMITIES: no LE/pedal edema, normal ROM w/out pain at site of infxn w/ active ROM. no tenderness w/ palpation RUE surrounding 2 abscesses NEUROLOGICAL: no FND, CNII-XII intact, strength 5/5 PSYCHIATRIC: oriented x3, normal mood/affect LABORATORY DATA: See below. IMAGING: RUE Xray (04/03): No acute fracture or dislocation. RUE soft tissue u/s (04/03): 1. Complex collection as described above (3.8x 1.2x 2.5cm fluid filled collection) most compatible with abscess. 2. Findings suggesting nonocclusive thrombus in the adjacent cephalic vein. MICROBIOLOGY: Please see below. ASSESSMENT/PLAN: 30M PMH cellulitic infxn w/ abscesses requiring surgical drainage, active IV drug user who presents w/ worsening RUE redness/swelling/warmth and was found to have 3.8x 1.2x 2.5cm abscess on RUE soft tissue u/s concerning for acute cellulitis w/ abscess, pending surgical consult for possible drainage. #Acute RUE cellulitis infxn w/ soft tissue abscess WBC 12.5 (78.4% Neutrophil), ESR 58, CRP 9.27 MRSA swab pending. Blood cx pending RUE soft tissue u/s, as noted above Start Vancomycin, as per pharmacy Given pt's hx cellulitis w/ subsequent soft tissue abscess formation, current infxn and abscess most likely caused by MRSA, MSSA, GBS. No need for pseudomonas or anaerobic coverage at this time. Monitor labs Surgery (Dr. Chao) on consult #RUE nonocclusive thrombus, most likely 2/2 active RUE cellulitic infxn and abscess On Lovenox #Homelessness Case Management and PFS aware #DVT Prophylaxis Teds and sequentials DISPO: MedSurg, most likely stay greater than 2midnights due to pt's homelessness and possible surgical drainage of abscess Activity as tolerated Regular diet Vital Signs Vital Signs Date Time Temp Pulse Resp B/P (MAP) Pulse Ox O2 Delivery O2 Flow Rate FiO2 04/03/21 13:42 66 18 122/76 (91) 98 Room Air 04/03/21 09:52 97.6 Laboratory Data Labs 24H Laboratory Tests 2 04/03/21 10:27: Immature Granulocyte % (Auto) 0.4, Neutrophils (%) (Auto) 78.4H, Lymphocytes (%) (Auto) 10.9L, Monocytes (%) (Auto) 8.3H, Eosinophils (%) (Auto) 1.8, Basophils (%) (Auto) 0.2, Neutrophils # (Auto) 9.8H, Lymphocytes # (Auto) 1.4L, Monocytes # (Auto) 1.0H, Eosinophils # (Auto) 0.2, Basophils # (Auto) 0.0, Nucleated Red Blood Cells % (auto) 0.0, Erythrocyte Sedimentation Rate 58H 04/03/21 10:32: Lactic Acid Level 1.9 04/03/21 12:53: Anion Gap 4L, Glomerular Filtration Rate > 60.0, Calcium Level 8.2L, Total Bilirubin 0.7, Direct Bilirubin 0.2, Aspartate Amino Transf (AST/SGOT) 38H, Alanine Aminotransferase (ALT/SGPT) 53, Alkaline Phosphatase 95, C-Reactive Protein, Quantitative 9.27H, Total Protein 8.0, Albumin 3.1L, Albumin/Globulin Ratio 0.6, Lipase 31L 04/03/21 13:01: Coronavirus (COVID-19)(PCR) NEGATIVE, Influenza Type A (RT-PCR) NEGATIVE, Influenza Type B (RT-PCR) NEGATIVE, Respiratory Syncytial Virus (PCR) NEGATIVE 04/03/21 13:42: CBC/BMP Laboratory Tests 04/03/21 10:27 04/03/21 12:53 Microbiology Microbiology 04/03/21 Blood Culture, Received Pending 04/03/21 Blood Culture, Received Pending Home Medications Scheduled Methadone HCl (Methadone HCl) 10 Mg/1 Ml Oral.conc, 105 MG PO DAILY NEED TO VERIFY DOSE WITH CREDO ON 04/05 Allergies Coded Allergies: No Known Allergies (Unverified , 07/03/19) A-FIB/CHADSVASC A-FIB History Current/History of A-Fib/PAF?: No Current PO Anticoag Therapy: No GME ATTESTATION GME ATTESTATION My faculty preceptor for this patient encounter was physically present during the encounter and was fully available. All aspects of the patient interview, examination, medical decision making process, and medical care plan development were reviewed and approved by the faculty preceptor. The faculty preceptor is aware and concurs with the plan as stated in the body of this note and will attest to such by his/her cosignature. ATTENDING NOTE I, Arthur Lan DO, have independently examined this patient and performed my own physical exam, as well as reviewed the documentation and edited where necessary. I have discussed in detail with the resident / student the findings and plan of treatment as documented by the resident / student and edited their note. I agree with their findings and treatment plan and have edited their documentation. I will continue to follow the patient during this hospital stay. Rosita Carrizales DO Apr 03, 2021 14:34 ARTHUR LAN DO Apr 03, 2021 17:58
[2021-04-03 15:00] LABS: AMPHETAMINES LEVEL URINE POSITIVE (NEGATIVE); BARBITURATES URINE NEGATIVE (NEGATIVE); BENZODIAZEPINES URINE NEGATIVE (NEGATIVE); CANNABINOIDS URINE NEGATIVE (NEGATIVE); COCAINE METABOLITE URINE POSITIVE (NEGATIVE); METHADONE URINE POSITIVE (NEGATIVE); OPIATES URINE POSITIVE (NEGATIVE); PHENCYCLIDINE URINE NEGATIVE (NEGATIVE)
[2021-04-03 16:00] VITALS: BP 118/73
[2021-04-03 22:00] VITALS: BP 130/76
[2021-04-03] MEDS: VANCOMYCIN HCL 1,000 MG, VIAL MATE ADAPTER 1 EACH in NS 250 ML IV SCH (22:37)
[2021-04-04] MEDS: VANCOMYCIN HCL 1,000 MG, VIAL MATE ADAPTER 1 EACH in NS 250 ML IV SCH ×2 (05:30→15:21)
[2021-04-04 06:00] VITALS: BP 126/63
[2021-04-04] MEDS ORDERED: ENOXAPARIN 40MG/0.4ML SYRINGE (J1650 PER 10MG) SC SCH (09:00)
[2021-04-04] MEDS ORDERED: ACETAMINOPHEN TAB 650MG DOSE (2X325MG) PO PRN (09:05)
--- NOTE | 2021-04-04 09:49 | IPNPDOC ---
Text Note Date of Service The patient was seen on 04/04/21. NOTE Subjective: Patient is a 30-year-old male who presented to the emergency depa rtment yesterday with right upper extremity swelling and was diagnosed with cellulitis with abscess. Patient was seen by surgery in the emergency department who was going to do a bedside incision and drainage however, the patient refused this. Patient states that he is feeling better and the redness is resolving. Patient is otherwise feeling well at this time. Review of systems: General: Patient denies fevers HEENT: Patient denies headaches Cardiovascular: Patient denies chest pain Respiratory: Patient denies shortness of breath, cough GI: Patient denies abdominal pain, nausea, vomiting, diarrhea : Patient denies increased frequency or pain with urination Extremities: Patient reports swelling and pain in his upper extremity on the right as above. Neurological: Patient denies numbness or tingling in legs Physical exam: Vitals: See below General: Alert and oriented male patient who was laying in bed when I walked in. Patient did not appear to be in any acute distress. HEENT: Normocephalic, atraumatic, moist mucous membranes. Neck: No lymphadenopathy or thyromegaly Cardiac: Regular rate and rhythm, no murmurs, normal S1, normal S2 Pulm: Clear to auscultation bilaterally. No wheezes, rhonchi, rales Abd: Nondistended, nontender to palpation, normal bowel sounds Ext: No edema bilateral lower extremities, redness with 2 areas of fluctuance on the ventral side of the right forearm. The redness has receded from the drawn on marker line from both the proximal and distal ends. Labs: See below Imaging: No new imaging has been performed. Assessment/plan: 30-year-old male with past medical history of multiple cellulitic infections with abscesses secondary to IV drug use with patient actively using IV drugs prior to coming to the hospital who presented with worsening right upper extremity redness and swelling was found to have cellulitis and 3.8 x 1.2 x 2.5 cm abscess 1. Upper extremity cellulitis with abscess. Patient has been treated with IV vancomycin. Bedside I&D was was performed yesterday however, the patient refused this. Patient will continue with IV vancomycin. Spoke with Dr. Hammond who states that an ultrasound-guided abscess drainage would be best with the patient. Order has been placed and this will be performed tomorrow. 2. Right upper extremity nonocclusive thrombus. This is most likely secondary to the acute cellulitic infection. ED provider spoke with vascular surgery who states that this will not need anticoagulation and once the cellulitis is improved, patient will just need compression sleeve. 3. Current IV drug use. We will have PFS speak with the patient on Monday. 4. Homelessness. PFS Monday DVT Prophylaxis: Teds and sequentials Disposition: Pending improvement in the cellulitis. See discharge summary on 04/04/2021 as patient left AMA. VS,Fishbone, I+O VS, Fishbone, I+O Laboratory Tests 04/03/21 10:27 04/03/21 12:53 Vital Signs Date Time Temp Pulse Resp B/P (MAP) Pulse Ox O2 Delivery O2 Flow Rate FiO2 04/04/21 06:00 98.0 81 18 126/63 (84) 98 Room Air I&O- Last 24 Hours up to 6 AM 04/04/21 06:00 Intake Total 2120 ml Output Total 1800 ml Balance 320 ml SAMANTHA AMBROSE DO Apr 04, 2021 09:49
[2021-04-04 11:08] LABS: BASO % 0.4 % (0.0-1.0); EOS # 0.3 10^3/uL (0.0-0.5); EOS % 2.8 % (0.0-3.0); HEMATOCRIT 39.6 % (42.0-52.0); HEMOGLOBIN 13.6 g/dl (13.5-17.5); LYMPH # 1.6 10^3/uL (1.5-5.0); LYMPH % 15.1 % (24.0-44.0); MEAN CORPUSCULAR HEMOGLOBIN 28.8 pg (27.0-33.0); MEAN CORPUSCULAR HGB CONC 34.3 g/dl (32.0-36.5); MEAN CORPUSCULAR VOLUME 83.7 fl (80.0-96.0); MONO % 9.1 % (2.0-8.0); NEUTROPHILS # 7.6 10^3/uL (1.5-8.5); NEUTROPHILS % 72.1 % (36.0-66.0); PLATELET COUNT, AUTOMATED 220 10^3/uL (150-450); RED BLOOD COUNT 4.73 10^6/uL (4.30-6.10); WHITE BLOOD COUNT 10.6 10^3/uL (4.0-10.0)
[2021-04-04 11:42] LABS: BLOOD UREA NITROGEN 11 MG/DL (7-18); CALCIUM LEVEL 8.3 MG/DL (8.5-10.1); CARBON DIOXIDE LEVEL 28 MEQ/L (21-32); CHLORIDE LEVEL 101 MEQ/L (98-107); CREATININE FOR GFR 0.56 MG/DL (0.70-1.30); GLOMERULAR FILTRATION RATE > 60.0 (>60); GLUCOSE, FASTING 81 MG/DL (70-100); POTASSIUM SERUM 4.6 MEQ/L (3.5-5.1); SODIUM LEVEL 135 MEQ/L (136-145)
[2021-04-04] MEDS ORDERED: ZYVO1TAB PO (16:01)
--- NOTE | 2021-04-04 16:27 | CR ---
CONSULTATION DATE: 04/03/2021 BRIEF HISTORY OF PRESENT ILLNESS: The patient is a 30-year-old male with cellulitis, abscess development of the right forearm after using IV drugs. He essentially developed this erythema about 4 or 5 days ago. He has had a history of drainage of an abscess for cellulitic IV drug sites in the past. In any case, his last admission reportedly he states that it spontaneously drained after several days and does not want intervention. PAST MEDICAL HISTORY: The patient's past medical history is significant for: 1. Gastroesophageal reflux disease. 2. Anxiety. 3. Cellulitis. PAST SURGICAL HISTORY: The patient's past surgical history is significant for: 1. Dental implants. 2. Drainage of right upper extremities and lower left upper extremities in the past. SOCIAL HISTORY: Drug use includes heroin, crack, meth, Hortencia, and is an active drug user. History of smoking. PHYSICAL EXAMINATION: GENERAL APPEARANCE: A 30-year-old male who looks stated age. HEENT: Unremarkable. LUNGS: Clear. HEART: Regular. EXTREMITIES: Right upper extremity reveals edema, erythema of the right forearm. It extends above the right elbow, into the right upper arm, but the lower aspect of it. IMAGING: There is an ultrasound that shows a complex fluid collection in the right forearm, consistent with an abscess. IMPRESSION AND PLAN: Initially I discussed with the patient and he agreed to proceed with an incision and drainage of this area under local and the plan was for pain medication, Lidocaine locally and incision and drainage of this. However the patient states he does not want any operative intervention and would prefer IV antibiotics and wait for this to spontaneously decompress. From my standpoint, I have concern and actually the nurse was also giving her opinion that this could get significantly worse with complications associated with his arm including nerve, artery, limb loss. He still wants to go with the IV antibiotics and fluids at this time.
--- NOTE | 2021-04-04 16:34 | DS.PDOC ---
Discharge Summary General Date of Admission Apr 03, 2021 at 13:25 Date of Discharge 04/04/2021 Attending Physician: SAMANTHA AMBROSE DO Discharge Summary PROCEDURES PERFORMED DURING STAY: None. ADMITTING DIAGNOSES: 1. Acute right upper extremity cellulitis with soft tissue abscess. 2. Right upper extremity nonocclusive thrombus 3. Homelessness DISCHARGE DIAGNOSES: 1. Acute right upper extremity cellulitis with soft tissue abscess. 2. Right upper extremity nonocclusive thrombus 3. Homelessness COMPLICATIONS/CHIEF COMPLAINT: Cellulitis And Abscess Of Upper Extremity. 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 Patient is noticed to small red bumps on the proximal right forearm for 4 to 5 days ago and has become more swollen the last 48 hours. Patient reports significant tenderness with direct palpation and warmth. Over the last 48 hours patient reports worsening redness of the right upper extremity. Patient denies any open wounds or recent trauma but has been injecting IV drugs mostly Hortencia. Patient recently was admitted for cellulitis on the same arm with abscess drainage. Patient does have a history of dental infections that have resulted in multiple teeth. Patient was admitted for further treatment and IV antibiotics for cellulitis with abscess. Patient was found to have nonocclusive thrombus of the adjacent cephalic vein. Vascular surgery was consulted by the emergency department who stated that this most likely due to the cellulitis and will resolve once the cellulitic infection has been dealt with. Patient will be treated with compression after the abscesses are drained. HOSPITAL COURSE: Patient was going to have an incision and drainage performed by general surgery the patient did not want a needle drainage at that time and wanted to go to the operating room. Patient was continued with IV vancomycin and the plan was going to be to have an ultrasound-guided needle drainage of the abscess on 04/05/2021. Patient was improving with IV vancomycin however, in the late afternoon on 04/04/2021 patient's IV became infiltrated in his left hand and patient was refusing to have a another IV placed. I went to talk to the patient stating that we needed to have an IV placed in order to continue with the patient's antibiotics. Patient said "if I leave here you will just send me an antibiotic and take by mouth anyway so I can I start that now." I t ried to explain to the patient that we would like to continue on the IV vancomycin until we are able to drain the abscess however, patient was refusing a new IV. Patient wanted to take a shower and have the IV removed. IV was removed and patient was going to a shower however, nursing staff contacted me stating the patient's had arrived. Due to the history of drug use, staff at the hospital requested to search the 's bag in order to ensure that the patient would not be using IV drugs while hospitalized. At this time the patient became quite irate and the patient's apparently ran out of the building. Patient became very upset with staff and decided to leave AGAINST MEDICAL ADVICE. Patient refused to sign AGAINST MEDICAL ADVICE form. Nursing staff did inform the patient that he should remain in the hospital as that I when I had seen the patient about 20 to 30 minutes prior to this event happening. Patient is at risk for dying or have worsening of the infection. I did talk to the patient about the risk of compartment syndrome as well as the infection becoming bad enough that he may require amputation of the limb. Patient left the hospital on 04/04/2021 AGAINST MEDICAL ADVICE DISCHARGE MEDICATIONS: Please see below. ALLERGIES: Please see below. PHYSICAL EXAMINATION ON DISCHARGE: VITAL SIGNS: Please see below. General: Alert and oriented male patient who was laying in bed when I walked in the room. Patient did not appear to be in acute distress. Patient was diaphoretic HEENT: Normocephalic, atraumatic, moist mucous membranes. Neck: No lymphadenopathy or thyromegaly Cardiac: Regular rate and rhythm, no murmurs, normal S1, normal S2 Pulm: Clear to auscultation bilaterally. No wheezes, rhonchi, rales Abd: Nondistended, nontender to palpation, normal bowel sounds Ext: No edema bilateral lower extremities. Patient's redness of the right upper extremity had receded from the drawn lines. Patient did have 2 areas of fluctuance 1 just distal to the antecubital fossa on the right arm and 1 more distal on the arm over the lateral side. These were both tender to the touch and were warm. LABORATORY DATA: Please see below. IMAGING: Right upper extremity x-ray performed on 04/03/2021 was reported to show no acute fracture dislocation. Right upper extremity soft tissue ultrasound performed on 04/03/2021 was reported to show complex collection as described as measuring 3.8 x 1.2 x 2.5 cm with peripheral vascularity suggesting abscess. Findings suggesting the nonocclusive thrombus in the adjacent cephalic vein. PROGNOSIS: Fair ACTIVITY: As tolerated. DIET: Regular DISCHARGE PLAN: Discharged AGAINST MEDICAL ADVICE DISPOSITION: 07 Against Medical Advice. DISCHARGE INSTRUCTIONS: 1. Follow-up with your primary care provider within 1 to 3 days. 2. Follow-up with surgery to have the abscess drained 3. Continue linezolid 600 mg twice daily for 7 days 4. Avoid IV drug use 5. Return to the emergency department if symptoms worsen ITEMS TO FOLLOWUP ON ON OUTPATIENT: 1. Follow-up abscess. DISCHARGE CONDITION: Stable. TIME SPENT ON DISCHARGE: 25 minutes. Vital Signs/I&Os Vital Signs Date Time Temp Pulse Resp B/P (MAP) Pulse Ox O2 Delivery O2 Flow Rate FiO2 04/04/21 06:00 98.0 81 18 126/63 (84) 98 Room Air I&O- Last 24 Hours up to 6 AM 04/04/21 06:00 Intake Total 2120 ml Output Total 1800 ml Balance 320 ml Laboratory Data Labs 24H Laboratory Tests 2 04/04/21 08:33: Immature Granulocyte % (Auto) 0.5, Neutrophils (%) (Auto) 72.1H, Lymphocytes (%) (Auto) 15.1L, Monocytes (%) (Auto) 9.1H, Eosinophils (%) (Auto) 2.8, Basophils (%) (Auto) 0.4, Neutrophils # (Auto) 7.6, Lymphocytes # (Auto) 1.6, Monocytes # (Auto) 1.0H, Eosinophils # (Auto) 0.3, Basophils # (Auto) 0.0, Nucleated Red Blood Cells % (auto) 0.0, Anion Gap 6L, Glomerular Filtration Rate > 60.0, Calcium Level 8.3L CBC/BMP Laboratory Tests 04/04/21 08:33 Microbiology Microbiology 04/03/21 Blood Culture - Preliminary, Resulted No growth after 24 hours . All specim... 04/03/21 Blood Culture - Preliminary, Resulted No growth after 24 hours . All specim... Discharge Medications Scheduled Linezolid (Zyvox) 600 Mg Tablet, 1 TAB PO BID with food Methadone HCl (Methadone HCl) 10 Mg/1 Ml Oral.conc, 105 MG PO DAILY, (Reported) NEED TO VERIFY DOSE WITH [facility] ON 04/05 Allergies Coded Allergies: No Known Allergies (Unverified , 07/03/19) SAMANTHA AMBROSE DO Apr 04, 2021 16:34
== END 2021-04-04 15:50 | disposition left against medical advice (07) | DRG 383 ==
LOC: M ED 09:51 → M ED INP 13:25 → M MSPAV 15:33
PROVIDERS: ADMIT Family Medicine; ATTEND Family Medicine
DX: L03.113 Cellulitis of right upper limb (principal); I82.611 Acute embolism and thrombosis of superficial veins of right upper extremity; F41.9 Anxiety disorder, unspecified; F17.200 Nicotine dependence, unspecified, uncomplicated; F11.10 Opioid abuse, uncomplicated; F15.10 Other stimulant abuse, uncomplicated; L02.413 Cutaneous abscess of right upper limb; K21.9 Gastro-esophageal reflux disease without esophagitis; Z20.822 Contact with and (suspected) exposure to COVID-19; Z59.0 Homelessness; Z91.19 Patient's noncompliance with other medical treatment and regimen; Z53.20 Procedure and treatment not carried out because of patient's decision for unspecified reasons

== ENCOUNTER → 2022-07-15 | Outpatient (CLI) | payer OTHER ==
[~2022-07-15] MED LIST changes: +OMEP-173; -OMEP-218; +ZYVO1TAB PO
[2022-07-15 13:40] LABS: BASO % 0.4 % (0.0-1.0); EOS # 0.3 10^3/uL (0.0-0.5); EOS % 3.1 % (0.0-3.0); HEMOGLOBIN 15.5 g/dl (13.5-17.5); LYMPH # 3.9 10^3/uL (1.5-5.0); LYMPH % 46.2 % (24.0-44.0); MEAN CORPUSCULAR HEMOGLOBIN 29.1 pg (27.0-33.0); MEAN CORPUSCULAR HGB CONC 35.2 g/dl (32.0-36.5); MEAN CORPUSCULAR VOLUME 82.7 fl (80.0-96.0); MONO # 0.7 10^3/uL (0.0-0.8); MONO % 8.5 % (2.0-8.0); NEUTROPHILS # 3.5 10^3/uL (1.5-8.5); NEUTROPHILS % 41.6 % (36.0-66.0); PLATELET COUNT, AUTOMATED 162 10^3/uL (150-450); RED BLOOD COUNT 5.32 10^6/uL (4.30-6.10); WHITE BLOOD COUNT 8.5 10^3/uL (4.0-10.0)
[2022-07-15 14:52] LABS: APPEARANCE, URINE MANUAL CLEAR (CLEAR); COLOR, URINE MANUAL YELLOW (YELLOW)
[2022-07-15 14:53] LABS: BILIRUBIN, URINE MANUAL NEGATIVE (NEGATIVE); BLOOD URINE MANUAL NEGATIVE (NEGATIVE); GLUCOSE, URINE (UA) MANUAL NEGATIVE (NEGATIVE); KETONE, URINE MANUAL NEGATIVE (NEGATIVE); NITRITE, URINE MANUAL NEGATIVE (NEGATIVE); PH,URINE MAN 5.5 UNITS (5.0 - 7.0); PROTEIN, URINE MANUAL NEGATIVE (NEGATIVE); UROBILINOGEN, URINE MANUAL NORMAL (NORMAL)
[2022-07-15 15:14] LABS: LEUKOCYTE ESTERASE, URINE MAN NEGATIVE (NEGATIVE)
[2022-07-15 15:30] LABS: HEPATITIS B SURFACE ANTIGEN NEGATIVE (NEGATIVE)
[2022-07-15 15:52] LABS: HEPATITIS B CORE ANTIBODY IGM NEGATIVE (NEGATIVE)
[2022-07-15 16:11] LABS: ALBUMIN 4.4 G/DL (3.2-5.2); BLOOD UREA NITROGEN 18 MG/DL (9-23); CALCIUM LEVEL 8.7 MG/DL (8.5-10.1); CARBON DIOXIDE LEVEL 27 MMOL/L (20-31); CHLORIDE LEVEL 104 MMOL/L (98-107); CREATININE FOR GFR 0.79 MG/DL (0.70-1.30); GLOMERULAR FILTRATION RATE > 60.0 (>60); GLUCOSE, FASTING 105 MG/DL (60-100); PHOSPHORUS LEVEL 2.8 MG/DL (2.5-4.9); POTASSIUM SERUM 4.4 MMOL/L (3.5-5.1); SODIUM LEVEL 138 MMOL/L (136-145)
[2022-07-15 16:53] LABS: HEPATITIS C VIRUS ABY INDEX > 11.0 INDEX (<0.8)
== END ==
LOC: M LAB 12:49
PROVIDERS: ATTEND Physician Assistant
DX: Z02.2 Encounter for examination for admission to residential institution (principal)

== ENCOUNTER → 2022-09-22 | Outpatient (CLI) | payer OTHER, MEDICAID | LOC: M PLALAB 14:52 | PROVIDERS: ATTEND Internal Medicine Infectious Disease | DX: B18.2 Chronic viral hepatitis C (principal) ==